=== PATIENT | female | born 1965 | race American Indian/Alaskan Native ===

== ENCOUNTER 2016-06-21 14:49 | Emergency (ER) | payer OTHER ==
[2016-06-21] MEDS ORDERED: Ondansetron INJ* 2 MG/ML VIAL IV ONE (15:22)
--- NOTE | 2016-06-21 15:24 | ED ---
Abdominal Pain/Female - HPI Summary HPI Summary: The patient is a 50 year old female presenting to ED for complaint of nausea, vomiting, diarrhea since Saturday. Recurrent vomiting with attempted PO intake. Several episodes of diarrhea. Since taking Pepto Bismal, stool has been "black like charcoal." Associated symptoms of mild epigastric pain non-radiating. Also reports chronic dry cough with occasional white sputum production. Denies fever , diaphoresis, chest pain, shortness of breath, hemoptysis, dysuria, change in voiding, hematuria, unilateral calf pain or swelling. History of CAD s/p stent x2 Jan 2016, HTN, COPD, GERD, depression. S/P cholecystectomy. On Asa and Plavix. No anticoagulation. Family history of CAD and COPD. PCP [facility]. Cardio Eliane Ellis. SH: Current smoker. No IVDU. - History of Current Complaint Chief Complaint: EDAbdPain Stated Complaint: VOMITING / BLACK STOOL Pain Intensity: 7 Allergies/Adverse Reactions: Allergies Allergy/AdvReac Type Severity Reaction Status Date / Time Latex Allergy Itching Verified 06/18/16 14:12 Tizanidine [From Zanaflex] AdvReac Nausea And Verified 06/18/16 14:12 Vomiting PMH/Surg Hx/FS Hx/Imm Hx Endocrine/Hematology History: Denies: Hx Diabetes Cardiovascular History: Reports: Hx Coronary Artery Disease, Hx Hypertension - ON MEDS, Other Cardiovascular Problems/Disorders - 2 CARDIAC STENTS Denies: Hx Congestive Heart Failure Respiratory History: Reports: Hx Chronic Obstructive Pulmonary Disease (COPD) GI History: Reports: Hx Gastroesophageal Reflux Disease - NO MEDS NEEDED NOW Denies: Other GI Disorders History: Reports: Other Problems/Disorders - STRESS INCONTINENCE Denies: Hx Dialysis, Hx Renal Disease Musculoskeletal History: Reports: Hx Arthritis - BACK, Hx Back Problems Sensory History: Denies: Hx Contacts or Glasses, Hx Hearing Aid Opthamlomology History: Denies: Hx Contacts or Glasses Neurological History: Reports: Hx Headaches, Hx Migraine - MIGRAINES R/T EPILEPSY, Hx Seizures - LAST ONE 03/23, Other Neuro Impairments/Disorders - PAIN CLINIC PATIENT, RESTLESS LEG SYNDROME, sciatica Psychiatric History: Reports: Hx Depression - Surgical History Surgery Procedure, Year, and Place: 01/2016 - heart attack w/ 2 stents. [place] [facility] [place] [facility] [place] 1988[place] . [place] [facility] [place] [facility] [place] Sp[place] stimulator. trial dorsal column stimulator [place] [facility] [place]. dorsal column stimulator placed 03/31/2015 Hx Anesthesia Reactions: No Infectious Disease History: No Infectious Disease History: Denies: Traveled Outside the [place] in Last 30 Days - Family History Known Family History: Positive: Cardiac Disease - CABG in father, Respiratory Disease - COPD - Social History Alcohol Use: None Hx Substance Use: No Substance Use Type: Reports: None Substance Use Comment - Amount & Last Used: fentanyl patch Hx Tobacco Use: Yes Smoking Status (MU): Current Every Day Smoker Type: Cigarettes Amount Used/How Often: 1/2 PPD Length of Time of Smoking/Using Tobacco: 30 YRS Have You Smoked in the Last Year: Yes Review of Systems Constitutional: Negative ENT: Negative Negative: Sore Throat, Nasal Discharge Cardiovascular: Negative Negative: Chest Pain Positive: Cough. Negative: Shortness Of Breath Positive: Abdominal Pain, Vomiting, Diarrhea, Nausea Genitourinary: Negative Negative: dysuria, flank pain, hematuria Positive: Other - chronic back pain with nerve stimulation Skin: Negative Negative: Rash Neurological: Negative All Other Systems Reviewed And Are Negative: Yes Physical Exam Triage Information Reviewed: Yes Vital Signs On Initial Exam: Initial Vitals Temp Pulse Resp BP Pulse Ox 96.7 F 80 20 123/74 98 06/21/16 14:50 06/21/16 14:50 06/21/16 14:50 06/21/16 14:50 06/21/16 14:50 Vital Signs Reviewed: Yes Appearance: Positive: Well-Appearing, No Pain Distress, Obese Skin: Positive: Warm, Skin Color Reflects Adequate Perfusion, Dry Head/Face: Positive: Normal Head/Face Inspection Eyes: Positive: Other: - Anicteric ENT: Positive: Normal ENT inspection, Hearing grossly normal, Pharynx normal, TMs normal. Negative: Pharyngeal erythema, Nasal congestion, Nasal drainage Neck: Positive: Supple, Nontender, No Lymphadenopathy Respiratory/Lung Sounds: Positive: Breath Sounds Present, Wheezes - faint expiratory wheezing. Negative: Decreased Breath Sounds, Rales, Rhonchi, Unable to speak in full sentences, Fatigue Cardiovascular: Positive: Normal, RRR, Pulses are Symmetrical in both Upper and Lower Extremities, S1, S2. Negative: Murmur, Rub, Tachycardia Abdomen Description: Positive: No Organomegaly, Soft, Other: - minimal epigastric tenderness; rectal exam with external skin tags and palpable hemorrhoids without thrombosis, no gross blood. Negative: CVA Tenderness (R), CVA Tenderness (L), Distended, Guarding, Hernia @, Hepatomegaly, McBurney's Point Tenderness, Peritoneal Signs, Pulsatile Mass, Splenomegaly Bowel Sounds: Positive: Present Musculoskeletal: Positive: Normal - AROM all extremities Neurological: Positive: Normal - awake, alert, following commands, Facial Symmetry, Speech Normal Psychiatric: Positive: Normal AVPU Assessment: Alert Diagnostics - Vital Signs Vital Signs Temp Pulse Resp BP Pulse Ox 06/21/16 14:50 96.7 F 80 20 123/74 98 - Laboratory Result Diagrams: 06/21/16 15:47 06/21/16 15:47 Lab Statement: Any lab studies that have been ordered have been reviewed, and results considered in the medical decision making process. Abdominal Pain Fem Course/Dx - Course Course Of Treatment: Patient is a 50 female presenting for V/D and epigastric pain. CXR without acute cardiopulmonary disease. Afebrile without leukocytosis and does not appear septic. Stool occult negative. Urinalysis without acute infectious process. Will be prescribed zofran. Advised on bland diet and increasing fluid intake. Advised to follow-up with PCP in 3-5 days. - Diagnoses Provider Diagnoses: Vomiting, Diarrhea, Epigastric pain, Dehydration Discharge - Discharge Plan Condition: Stable Disposition: HOME Patient Education Materials: Dehydration (ED), Acute Nausea and Vomiting (ED), Acute Diarrhea (ED), Epigastric Pain (ED) Referrals: Maribel Ortega MD [Primary Care Provider] - 5 Days
[2016-06-21] MEDS ORDERED: NS 0.9% 1000 ML* 1,000 ML IV SCH (15:30)
--- NOTE | 2016-06-21 15:41 | RAD ---
INDICATION: Epigastric pain COMPARISON: 02/27/2016 TECHNIQUE: PA and lateral dual-energy views were obtained. FINDINGS: Bones/Soft Tissues: There are no acute bony findings. There is a dorsal column stimulator, unchanged Cardiomediastinal: The cardiomediastinal silhouette is normal. Lungs: There are no infiltrates. Pleura: There are no pleural effusions. Other: None IMPRESSION: NO ACTIVE DISEASE.
[2016-06-21 15:58] LABS: Hematocrit 43 % (35-47); Hemoglobin 14.2 g/dl (12.0-16.0); Mean Corpuscular HGB Conc 33 g/dl (31-36); Mean Corpuscular Hemoglobin 29 pg (27-31); Mean Corpuscular Volume 88 fL (80-97); Mean Platelet Volume 9 um3 (7.4-10.4); Red Blood Count 4.93 10^6/ul (4.0-5.4); Red Cell Distribution Width 13 % (10.5-15); White Blood Count 6.7 10^3/ul (3.5-10.8)
[2016-06-21] MEDS ORDERED: Al Hydrox/Mg Hydrox/Simet LIQ* 30 ML UDC PO ONE (16:02)
[2016-06-21] MEDS ORDERED: Lidocaine 2% VISCOUS* 15 ML UDC PO ONE (16:02)
[2016-06-21 16:13] LABS: Albumin 4.1 g/dL (3.2-5.2); BUN/Creatinine Ratio 20.2 (8-20); Calcium 9.2 mg/dL (8.6-10.3); EGFR African American 92.7 (>60); EGFR Non-African American 72.1 (>60); Globulin 2.6 g/dL (2-4); Magnesium 1.8 mg/dL (1.9-2.7); Potassium 3.7 mmol/L (3.5-5.0); Total Bilirubin 0.3 mg/dL (0.2-1.0); Total Protein 6.7 g/dL (6.4-8.9)
[2016-06-21 16:48] LABS: Urine Bacteria Absent (Absent); Urine Bilirubin Negative (Negative); Urine Glucose Negative (Negative); Urine Nitrite Negative (Negative)
[2016-06-21] MEDS ORDERED: Ondansetron ODT TAB* 4 MG PO ONE (17:30)
[2016-06-21 18:06] VITALS: BP 100/65
== END 2016-06-21 18:05 | disposition home or self-care (01) ==
LOC: ED 14:49
DX: R11.10 Vomiting, unspecified (principal); R19.7 Diarrhea, unspecified; R10.13 Epigastric pain; E86.0 Dehydration; Z79.82 Long term (current) use of aspirin; Z79.02 Long term (current) use of antithrombotics/antiplatelets; Z82.49 Family history of ischemic heart disease and other diseases of the circulatory system; I25.10 Atherosclerotic heart disease of native coronary artery without angina pectoris; I10 Essential (primary) hypertension; J44.9 Chronic obstructive pulmonary disease, unspecified; K21.9 Gastro-esophageal reflux disease without esophagitis; F32.9 Major depressive disorder, single episode, unspecified; I25.2 Old myocardial infarction; F17.210 Nicotine dependence, cigarettes, uncomplicated
CPT/HCPCS: 36415; 71020; 80053; 81003; 81015; 82272; 83690; 83735; 85025; 87045; 87046; 87077; 87086; 87425; 87449; 87493; 87502; 87899; 96374; 99284; A9270-GY; J2405

== ENCOUNTER 2016-07-03 04:17 | Emergency (ER) | payer OTHER ==
[2016-07-03] MEDS ORDERED: Azithromycin TAB* 250 MG PO ONE (05:00)
[2016-07-03] MEDS ORDERED: predniSONE TAB* 20 MG PO ONE (05:01)
--- NOTE | 2016-07-03 05:36 | ED ---
I, Tristan,Adrienne, scribed for Garima Munoz MD on 07/03/16 at 0448 . Influenza-Like Illness - HPI Summary HPI Summary: This 50 y/o female presents to ED for flu-like symptoms since a week ago. Pt reports productive cough with green sputum, chest pain, sore throat, and subjective fever. Pt has been taking APAP to control her symptoms. PMHx is significant for CAD s/p stent placement, unspecified spinal problem s/p stimulator placement, PNA and epilepsy. She denies any asthma or COPD. Pt reports that Symbicort is included in home medication. FHx includes cardiac dz to both parents. - History of Current Complaint Time Seen by Provider: 07/03/16 04:35 Hx Obtained From: Patient Onset/Duration: Gradual Onset, Lasting Weeks, Still Present Associated Signs & Symptoms: Fever - subjective, Cough - productive with green sputum, Sore Throat - Allergy/Home Medications Allergies/Adverse Reactions: Allergies Allergy/AdvReac Type Severity Reaction Status Date / Time Latex Allergy Itching Verified 07/03/16 05:10 Tizanidine [From Zanaflex] AdvReac Nausea And Verified 07/03/16 05:10 Vomiting PMH/Surg Hx/FS Hx/Imm Hx Endocrine/Hematology History: Denies: Hx Diabetes Cardiovascular History: Reports: Hx Coronary Artery Disease, Hx Hypertension - ON MEDS, Other Cardiovascular Problems/Disorders - 2 CARDIAC STENTS Denies: Hx Congestive Heart Failure Respiratory History: Reports: Hx Chronic Obstructive Pulmonary Disease (COPD) GI History: Reports: Hx Gastroesophageal Reflux Disease - NO MEDS NEEDED NOW Denies: Other GI Disorders History: Reports: Other Problems/Disorders - STRESS INCONTINENCE Denies: Hx Dialysis, Hx Renal Disease Musculoskeletal History: Reports: Hx Arthritis - BACK, Hx Back Problems Sensory History: Denies: Hx Contacts or Glasses, Hx Hearing Aid Opthamlomology History: Denies: Hx Contacts or Glasses Neurological History: Reports: Hx Headaches, Hx Migraine - MIGRAINES R/T EPILEPSY, Hx Seizures - LAST ONE 03/23, Other Neuro Impairments/Disorders - PAIN CLINIC PATIENT, RESTLESS LEG SYNDROME, sciatica Psychiatric History: Reports: Hx Depression - Surgical History Surgery Procedure, Year, and Place: 01/2016 - heart attack w/ 2 stents. BILAT CTR 2004 [facility] [place]. [place] 2001 [facility] [place]. section x2, . left heel tendon repair [facility]. tubal ligation 1989 [facility] [place]. Spinal stimulator. trial dorsal column stimulator October 2014 [facility] [place]. perm. dorsal column stimulator placed 03/31/2015 Hx Anesthesia Reactions: No Infectious Disease History: Denies: Traveled Outside the [place] in Last 30 Days - Family History Known Family History: Positive: Cardiac Disease - CABG in father, Respiratory Disease - COPD - Social History Alcohol Use: None Hx Substance Use: No Substance Use Type: Reports: None Substance Use Comment - Amount & Last Used: fentanyl patch Hx Tobacco Use: Yes Smoking Status (MU): Current Every Day Smoker Type: Cigarettes Amount Used/How Often: 1/2 PPD Length of Time of Smoking/Using Tobacco: 30 YRS Have You Smoked in the Last Year: Yes Review of Systems Positive: Fever - subjective fever Positive: Sore Throat Positive: Cough - productive with green sputum Positive: Abdominal Pain All Other Systems Reviewed And Are Negative: Yes Physical Exam Triage Information Reviewed: Yes Vital Signs On Initial Exam: Initial Vitals Temp Pulse Resp BP Pulse Ox 98.1 F 71 16 132/81 96 07/03/16 04:30 07/03/16 04:30 07/03/16 04:30 07/03/16 04:30 07/03/16 04:30 Vital Signs Reviewed: Yes Appearance: Positive: Well-Appearing, No Pain Distress Skin: Positive: Warm, Skin Color Reflects Adequate Perfusion, Dry Head/Face: Positive: Normal Head/Face Inspection Eyes: Positive: DIONISIO Neck: Positive: Supple, Nontender Respiratory/Lung Sounds: Positive: Clear to Auscultation, Breath Sounds Present. Negative: Rales, Wheezes Cardiovascular: Positive: RRR, Pulses are Symmetrical in both Upper and Lower Extremities. Negative: Murmur, Rub Abdomen Description: Positive: Nontender, Soft Musculoskeletal: Positive: Strength/ROM Intact Neurological: Positive: Sensory/Motor Intact, Alert, Oriented to Person Place, Time Psychiatric: Positive: Affect/Mood Appropriate AVPU Assessment: Alert Diagnostics - Vital Signs Vital Signs Temp Pulse Resp BP Pulse Ox 07/03/16 05:00 66 111/71 94 07/03/16 04:37 96 07/03/16 04:35 132/81 07/03/16 04:30 98.1 F 71 16 132/81 96 - Laboratory Lab Results: Lab Results 07/03/16 Range/Units 04:42 Group A Strep Rapid Negative (Negative) Lab Statement: Any lab studies that have been ordered have been reviewed, and results considered in the medical decision making process. - Radiology CXR Xray Interpretation: No Acute Changes Radiology Interpretation Completed By: ED Physician - See EMR - EKG 0459 Cardiac Rate: NL - 65 bpm EKG Rhythm: Sinus Rhythm ST Segment: Normal Ectopy: None - Additional Comments Diagnostic Additional Comments: Negative Rapid Strep Flu Symptom Course/Dx - Course Assessment/Plan: This 50 y/o female presents to ED with chief complaint of sore throat, productive cough with green sputum production, and subjective fever. PMHx is positive for CAD s/p stent placement and PNA. Pt denies any COPD or asthma, but does have Symbicort at home. Rapid strep is indicated negative. EKG is wnl. Benign CXR. Pt is discharged with f/u with PCP as outpatient. - Diagnoses Provider Diagnoses: Bronchitis Discharge - Discharge Plan Condition: Stable Disposition: HOME Prescriptions: Azithromycin TAB* [Zithromax TAB (Z-ADRYAN) 250 mg #6 tabs] 250 mg PO DAILY #4 tab Prednisone [Deltasone] 20 mg PO DAILY #20 tab predniSONE TAB* [Deltasone TAB*] 60 mg PO DAILY #12 tab Patient Education Materials: Azithromycin (By mouth), Prednisone (By mouth), Acute Bronchitis (ED) Referrals: Maribel Ortega MD [Primary Care Provider] - The documentation as recorded by the Tristan brice Soohyun accurately reflects the service I personally performed and the decisions made by me, Garima Munoz MD.
[2016-07-03 05:40] VITALS: BP 111/84
--- NOTE | 2016-07-03 08:18 | RAD ---
INDICATION: Cough COMPARISON: Most recent comparison chest x-ray is dated June 21, 2016 TECHNIQUE: PA and lateral views of the chest were obtained. FINDINGS: Again seen is a neural stimulator overlying the thoracic spine similar in position to the previous radiograph. The heart and mediastinum are normal in size and contour. There is mild to moderate peribronchial cuffing. The lungs are grossly clear. There is no evidence of large pleural effusion. Visualized bones are normal for the patient's age. There is no radiographic evidence of free air beneath the diaphragm IMPRESSION: PERIBRONCHIAL CUFFING, NOT SIGNIFICANTLY CHANGED THE PREVIOUS CHEST X-RAY, COULD BE SEEN IN THE SETTING OF INFLAMMATORY LUNG DISEASE.
== END 2016-07-03 05:43 | disposition home or self-care (01) ==
LOC: ED 04:17
DX: J40 Bronchitis, not specified as acute or chronic (principal); R50.9 Fever, unspecified; J02.9 Acute pharyngitis, unspecified; R05 Cough; R10.9 Unspecified abdominal pain; F17.210 Nicotine dependence, cigarettes, uncomplicated
CPT/HCPCS: 71020; 87651; 93005; 99283; A9270-GY; J7512

== ENCOUNTER 2016-07-20 13:59 | Emergency (ER) | payer OTHER ==
[2016-07-20] MEDS ORDERED: HYDROmorphone INJ* 1 MG/ML CARPUJECT SYRINGE IV ONE (16:14)
[2016-07-20] MEDS ORDERED: NS 0.9% 1000 ML* 1,000 ML IV ONE (16:14)
[2016-07-20 16:38] LABS: Hematocrit 44 % (35-47); Hemoglobin 14.3 g/dl (12.0-16.0); Mean Corpuscular HGB Conc 32 g/dl (31-36); Mean Corpuscular Hemoglobin 28 pg (27-31); Mean Corpuscular Volume 88 fL (80-97); Mean Platelet Volume 8 um3 (7.4-10.4); Red Blood Count 5.03 10^6/ul (4.0-5.4); Red Cell Distribution Width 15 % (10.5-15); White Blood Count 12.4 10^3/ul (3.5-10.8)
[2016-07-20 16:52] LABS: Albumin 4.2 g/dL (3.2-5.2); BUN/Creatinine Ratio 23.9 (8-20); Calcium 9.3 mg/dL (8.6-10.3); EGFR African American 83.4 (>60); EGFR Non-African American 64.9 (>60); Globulin 2.8 g/dL (2-4); Potassium 3.8 mmol/L (3.5-5.0); Total Bilirubin 0.4 mg/dL (0.2-1.0)
[2016-07-20 16:53] LABS: Troponin I 0.01 ng/mL (<0.04)
[2016-07-20] MEDS ORDERED: Iohexol 300* (CONTRAST) 10 ML SDV IV ONE (17:07)
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
[2016-07-20] MEDS ORDERED: oxyCODONE TAB* 5 MG TAB PO ONE (18:23)
[2016-07-20 19:08] VITALS: BP 138/81
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
== END 2016-07-20 19:10 | disposition home or self-care (01) ==
LOC: ED 13:59
DX: S20.219A Contusion of unspecified front wall of thorax, initial encounter (principal); S30.1XXA Contusion of abdominal wall, initial encounter; R07.9 Chest pain, unspecified; R10.9 Unspecified abdominal pain; M25.559 Pain in unspecified hip
CPT/HCPCS: 36415; 71260; 74177; 80053; 83605; 84484; 85025; 93005; 96374; 99284; A9270-GY; J1170; Q9967

== ENCOUNTER 2016-10-15 10:53 | Emergency (ER) | payer OTHER ==
[2016-10-15 10:58] VITALS: BP 126/80
[2016-10-15] MEDS ORDERED: HYDROcodone/ACETAMIN 5-325 MG* 1 TAB PO ONE (14:35)
--- NOTE | 2016-10-21 23:59 | ED ---
Throat Pain/Nasal Congestion - HPI Summary HPI Summary: Pt here w/ Rt upper dental pain x 2 days. Radiating into sinus on this side. Has tried oxycodone and acetaminophen w/o relief last night. She is currently on anticoagulants d/t [place] last year and has been postponing dental work as a result. Cannot take NSAID's. Denies fever, chills, trouble breathing or swallowing and no ocular pain or VERA, neck pain. Denies N/V/D. - History of Current Complaint Chief Complaint: EDDentalPain Time Seen by Provider: 10/15/16 12:01 Hx Obtained From: Patient - Allergies/Home Medications Allergies/Adverse Reactions: Allergies Allergy/AdvReac Type Severity Reaction Status Date / Time Latex Allergy Itching Verified 08/21/16 14:17 Tizanidine [From Zanaflex] AdvReac Nausea And Verified 08/21/16 14:17 Vomiting PMH/Surg Hx/FS Hx/Imm Hx Previously Healthy: Yes Endocrine/Hematology History: Reports: Hx Anticoagulant Therapy Denies: Hx Blood Disorders, Hx Diabetes, Hx Unexplained Bleeding, Autoimmune Disease Cardiovascular History: Reports: Hx Coronary Artery Disease, Hx Hypertension - ON MEDS, Other Cardiovascular Problems/Disorders - 2 CARDIAC STENTS Denies: Hx Congestive Heart Failure Respiratory History: Reports: Hx Chronic Obstructive Pulmonary Disease (COPD) GI History: Reports: Hx Gastroesophageal Reflux Disease - NO MEDS NEEDED NOW Denies: Other GI Disorders History: Reports: Other Problems/Disorders - STRESS INCONTINENCE Denies: Hx Dialysis, Hx Renal Disease Musculoskeletal History: Reports: Hx Arthritis - BACK, Hx Back Problems Sensory History: Denies: Hx Contacts or Glasses, Hx Hearing Aid Opthamlomology History: Denies: Hx Contacts or Glasses Neurological History: Reports: Hx Headaches, Hx Migraine - MIGRAINES R/T EPILEPSY, Hx Seizures - LAST ONE 03/23, Other Neuro Impairments/Disorders - PAIN CLINIC PATIENT, RESTLESS LEG SYNDROME, sciatica Psychiatric History: Reports: Hx Depression - Surgical History Surgery Procedure, Year, and Place: 01/2016 - heart attack w/ 2 stents. BILAT [place] 2004 [facility] [place] 2001 [facility] [place]. c section x2, 1988- . left heel tendon repair [facility] [place]. tubal ligation 1989 [facility] [place]. Spinal stimulator. trial dorsal column stimulator October 2014 [facility] [place]. perm. dorsal column stimulator placed 03/31/2015 Hx Anesthesia Reactions: No Infectious Disease History: No Infectious Disease History: Denies: Traveled Outside the [place] in Last 30 Days - Family History Known Family History: Positive: Cardiac Disease - CABG in father, Respiratory Disease - COPD - Social History Alcohol Use: None Hx Substance Use: No Substance Use Type: Reports: None Substance Use Comment - Amount & Last Used: fentanyl patch Hx Tobacco Use: Yes Smoking Status (MU): Current Every Day Smoker Type: Cigarettes Amount Used/How Often: 8 cigarettes/day Length of Time of Smoking/Using Tobacco: 30 YRS Have You Smoked in the Last Year: Yes Review of Systems Negative: Fever, Chills Eyes: Negative Negative: Drainage, Erythema Positive: Dental Pain - see HPI. Negative: Sore Throat, Ear Ache, Nasal Discharge Cardiovascular: Negative Negative: Chest Pain Respiratory: Negative Negative: Shortness Of Breath Gastrointestinal: Negative Negative: Abdominal Pain, Vomiting, Diarrhea, Nausea Positive: no symptoms reported Musculoskeletal: Negative Skin: Negative Negative: Headache Psychological: Normal All Other Systems Reviewed And Are Negative: Yes Physical Exam Triage Information Reviewed: Yes Vital Signs On Initial Exam: Initial Vitals Temp Pulse Resp BP Pulse Ox 96.9 F 89 20 126/80 99 10/15/16 10:57 10/15/16 10:57 10/15/16 10:57 10/15/16 10:57 10/15/16 10:57 Vital Signs Reviewed: Yes Appearance: Positive: Well-Appearing - pt is sleeping in stretcher upon presentation to room, No Pain Distress - reported however does not appear to be in pain Skin: Positive: Warm, Dry - no erythema over face Head/Face: Positive: Normal Head/Face Inspection - no facial edema Eyes: Positive: Normal, EOMI. Negative: Conjunctiva Inflammed, Discharge ENT: Positive: Normal ENT inspection, Hearing grossly normal, Pharynx normal, TMs normal. Negative: Nasal congestion, Nasal drainage, Tonsillar swelling, Tonsillar exudate, Trismus, Muffled/hoarse voice Dental: Positive: Other - poor dentition in general - gingiva w/ general erythema - no signs of pustule or drainage Neck: Positive: Supple, Nontender, No Lymphadenopathy Respiratory/Lung Sounds: Positive: Breath Sounds Present. Negative: Stridor Cardiovascular: Positive: Normal, RRR Musculoskeletal: Positive: Normal, Strength/ROM Intact Neurological: Positive: Normal, Sensory/Motor Intact, Alert, Oriented to Person Place, Time, CN Intact II-III Psychiatric: Positive: Normal Diagnostics - Vital Signs Vital Signs Temp Pulse Resp BP Pulse Ox 10/15/16 10:58 97.5 F 73 20 126/80 98 10/15/16 10:57 96.9 F 89 20 126/80 99 - Laboratory Lab Statement: Any lab studies that have been ordered have been reviewed, and results considered in the medical decision making process. EENT Course/Dx - Course Course Of Treatment: Pt presents w/ dental pain. She is sleeping upon exam and falls back to sleep w/o pain medication. She reports failing oxycodone and acetaminophen at home and cannot take NSAID's. Cannot rx tramadol d/t seizure hx. Will try norco for alternative pain medication until anbx can treat potential infection d/t tooth decay causing gingivitis. She will f/u w/ dentist and return to ED if she develops danger s/sx. - Diagnoses Provider Diagnoses: Pain, dental Discharge - Discharge Plan Condition: Stable Disposition: HOME Prescriptions: HYDROcodone/ACETAMIN 5-325 MG* [[place] 5-325 TAB*] 1 tab PO Q6H PRN #12 tab MDD 4 PRN Reason: Pain Penicillin VK TAB* [Penicillin VK 250 mg Tab*] 500 mg PO QID #40 tab Patient Education Materials: Toothache (ED) Referrals: Maribel Ortega MD [Primary Care Provider] - Additional Instructions: Oral saline rinses Heat packs Complete antibiotics Follow-up with dentist this week *If you develop fever, chills, vomiting, difficulty swallowing or breathing, return to ED
== END 2016-10-15 16:07 | disposition home or self-care (01) ==
LOC: ED 10:53
DX: K08.89 Other specified disorders of teeth and supporting structures (principal); I25.2 Old myocardial infarction; Z79.01 Long term (current) use of anticoagulants; I25.10 Atherosclerotic heart disease of native coronary artery without angina pectoris; I10 Essential (primary) hypertension; J44.9 Chronic obstructive pulmonary disease, unspecified; F17.210 Nicotine dependence, cigarettes, uncomplicated
CPT/HCPCS: 99282

== ENCOUNTER 2016-12-09 10:24 | Observation (INO) | payer OTHER ==
[2016-12-09] MEDS ORDERED: Aspirin Low Dose CHEW TAB* 81 MG PO ONE ×2 (11:04→11:11)
[2016-12-09 11:22] LABS: Hematocrit 45 % (35-47); Hemoglobin 14.7 g/dl (12.0-16.0); Mean Corpuscular HGB Conc 33 g/dl (31-36); Mean Corpuscular Hemoglobin 29 pg (27-31); Mean Corpuscular Volume 88 fL (80-97); Mean Platelet Volume 9 um3 (7.4-10.4); Red Blood Count 5.08 10^6/ul (4.0-5.4); Red Cell Distribution Width 14 % (10.5-15); White Blood Count 7.4 10^3/ul (3.5-10.8)
[2016-12-09] MEDS ORDERED: Nitroglycerin TAB 0.4 MG* 0.4 MG TAB SL ONE (11:31)
[2016-12-09 11:35] LABS: BUN/Creatinine Ratio 17.3 (8-20); Calcium 9.4 mg/dL (8.6-10.3); EGFR African American 105.2 (>60); EGFR Non-African American 81.8 (>60); Magnesium 2.1 mg/dL (1.9-2.7); Potassium 3.9 mmol/L (3.5-5.0); Total Bilirubin 0.5 mg/dL (0.2-1.0); Troponin I 0.01 ng/mL (<0.04)
[2016-12-09 11:56] LABS: TSH (Thyroid Stimulating Horm) 0.97 mcIU/mL (0.34-5.60)
[2016-12-09] MEDS ORDERED: Levalbuterol 1.25MG/0.5ML NEB INH ONE (12:01)
--- NOTE | 2016-12-09 12:41 | RAD ---
Indication: Chest pain, shortness of breath. Comparison is made with previous exam dated July 03, 2016. 2 views of the chest including dual energy PA views are reviewed. No mediastinal shift is noted. There is poor inspiratory effort noted. Bibasilar atelectasis is noted. Neurostimulator leads are in place. IMPRESSION: Poor inspiratory effort without evidence of definite pneumonia.
--- NOTE | 2016-12-09 13:06 | ED ---
HPI Chest Pain - HPI Summary HPI Summary: Pt here w/ chest pain, pressure, heaviness and felt like she couldn't breath upon waking this morning at 9:35am. Took a nitro with minimal relief of chest pressure. H/o [place] in January with stents placed by Dr. Tamayo - has been taking plavix and ASA 81mg daily since w/o missing doses. She came in today as she was concerned this could be another NJ. SOme sx are similar but doesn't have Lt arm pain this time like she had in January. Also reports URI sx x 5 days. Her other thought is that this could be a "cold" in her chest. Chronic cough but worse today. Nasal congestion, achey all over x 5 days. Denies fever but feels cold. Denies N/V/D, ab pain. H/o smoking (2PPD down to 1/2 PPD) w/ recurrent bronchitis and h/o pneumonia - she reports sx feel similar to these illnesses as well. Does not have breathing treatments at home as this is not typically an issue for her but reports she's used them in the past w/ good results. Would like to try this today. Also reports h/o dental pain in various areas of her mouth over past few months. Rt upper jaw w/ dental pain - alleviated when tooth fell out. New onset Lt lower dental pain x 1 week - progressively worse. Swollen, possibly drainage - has a "bad tooth" here as well. Hasn't been able to get work done at dentist d /t plavix and ASA for stents. GI bug around November 27 - resolved w/ no residual issues. NOTE: sleep apnea test recently - results pending - History of Current Complaint Chief Complaint: EDChestPainROMI Time Seen by Provider: 12/09/16 10:43 Hx Obtained From: Patient Pain Intensity: 5 - Additional Pertinent History Primary Care Physician: [id number] - Allergy/Home Medications Allergies/Adverse Reactions: Allergies Allergy/AdvReac Type Severity Reaction Status Date / Time Latex Allergy Itching Verified 12/09/16 10:30 PMH/Surg Hx/FS Hx/Imm Hx Previously Healthy: Yes Endocrine/Hematology History: Denies: Hx Diabetes Cardiovascular History: Reports: Hx Coronary Artery Disease, Hx Hypertension - ON MEDS, Other Cardiovascular Problems/Disorders - 2 CARDIAC STENTS Jan 2016 Denies: Hx Congestive Heart Failure Respiratory History: Reports: Hx Chronic Obstructive Pulmonary Disease (COPD) - no meds GI History: Reports: Hx Gastroesophageal Reflux Disease - NO MEDS NEEDED NOW Denies: Other GI Disorders History: Reports: Other Problems/Disorders - STRESS INCONTINENCE Denies: Hx Dialysis, Hx Renal Disease Musculoskeletal History: Reports: Hx Arthritis - BACK, Hx Back Problems Sensory History: Denies: Hx Contacts or Glasses, Hx Hearing Aid Opthamlomology History: Denies: Hx Contacts or Glasses Neurological History: Reports: Hx Headaches, Hx Migraine - MIGRAINES R/T EPILEPSY, Hx Seizures - LAST ONE 03/23, Other Neuro Impairments/Disorders - PAIN CLINIC PATIENT, RESTLESS LEG SYNDROME, sciatica Psychiatric History: Reports: Hx Depression - Surgical History Surgery Procedure, Year, and Place: 01/2016 - heart attack w/ 2 stents. [facility] 2004 [facility] [place]. [facility] [place] 2001 [facility] [place]. c section x2, 1988- . left heel tendon repair [facility] [place]. tubal ligation 1989 [facility] [place]. Spinal stimulator. trial dorsal column stimulator October 2014 [facility] [place]. perm. dorsal column stimulator placed 03/31/2015 Hx Anesthesia Reactions: No Infectious Disease History: No Infectious Disease History: Denies: Traveled Outside the [place] in Last 30 Days - Family History Known Family History: Positive: Cardiac Disease - CABG in father, Respiratory Disease - COPD - Social History Lives: With Family Alcohol Use: None Hx Substance Use: No Substance Use Type: Reports: None Substance Use Comment - Amount & Last Used: fentanyl patch Hx Tobacco Use: Yes Smoking Status (MU): Current Every Day Smoker Type: Cigarettes Amount Used/How Often: 1/2 PPD Length of Time of Smoking/Using Tobacco: 2PPD x 30 YRS Have You Smoked in the Last Year: Yes Review of Systems Positive: Chills. Negative: Fever Positive: Dental Pain, Ear Ache, Nasal Discharge. Negative: Sore Throat Positive: Chest Pain Positive: Shortness Of Breath, Cough Gastrointestinal: Negative Positive: no symptoms reported Musculoskeletal: Negative Negative: Rash Neurological: Negative Positive: Anxious All Other Systems Reviewed And Are Negative: Yes Physical Exam Triage Information Reviewed: Yes Vital Signs On Initial Exam: Initial Vitals Temp Pulse Resp BP Pulse Ox 97.3 F 85 20 136/97 95 12/09/16 10:31 12/09/16 10:31 12/09/16 10:31 12/09/16 10:31 12/09/16 10:31 Vital Signs Reviewed: Yes Appearance: Positive: Obese Skin: Positive: Warm, Dry Head/Face: Positive: Normal Head/Face Inspection - Sinuses TTP Eyes: Positive: Normal, EOMI, DIONISIO ENT: Positive: Hearing grossly normal, Pharynx normal, Nasal congestion, TMs normal. Negative: Nasal drainage, Tonsillar swelling, Tonsillar exudate, Muffled/hoarse voice Dental: Positive: Gross Decay/Caries @ Neck: Positive: Supple, No Lymphadenopathy, Tenderness @ - Pt reports TTP along Lt submandibular region Respiratory/Lung Sounds: Positive: Decreased Breath Sounds, Rhonchi, Wheezes, Other - poor inspiration until requesting deeper breathes. Negative: Rales Cardiovascular: Positive: Normal, RRR, Pulses are Symmetrical in both Upper and Lower Extremities, S1, S2. Negative: Murmur, Rub, Leg Edema Left, Leg Edema Right Abdomen Description: Positive: Nontender, No Organomegaly, Soft Bowel Sounds: Positive: Present Musculoskeletal: Positive: Normal, Strength/ROM Intact Neurological: Positive: Normal, Sensory/Motor Intact, Alert, Oriented to Person Place, Time, CN Intact II-III Psychiatric: Positive: Anxious - Meera Coma Scale Coma Scale Total: 15 Diagnostics - Vital Signs Vital Signs Temp Pulse Resp BP Pulse Ox 12/09/16 11:30 111/68 12/09/16 11:09 97 12/09/16 11:00 80 18 115/88 95 12/09/16 10:46 20 12/09/16 10:37 126/94 12/09/16 10:31 97.3 F 85 20 136/97 95 - Laboratory Lab Results: Lab Results 12/09/16 12/09/16 12/09/16 Range/Units 11:05 11:05 11:05 WBC 7.4 (3.5-10.8) 10^3/ul RBC 5.08 (4.0-5.4) 10^6/ul Hgb 14.7 (12.0-16.0) g/dl Hct 45 (35-47) % MCV 88 (80-97) fL MCH 29 (27-31) pg MCHC 33 (31-36) g/dl RDW 14 (10.5-15) % Plt Count 265 (150-450) 10^3/ul MPV 9 (7.4-10.4) um3 Neut % (Auto) 48.8 (38-83) % Lymph % (Auto) 42.2 (25-47) % Bartholomew % (Auto) 7.6 (1-9) % Eos % (Auto) 0 (0-6) % Baso % (Auto) 1.4 (0-2) % Absolute Neuts (auto) 3.6 (1.5-7.7) 10^3/ul Absolute Lymphs (auto) 3.1 (1.0-4.8) 10^3/ul Absolute Monos (auto) 0.6 (0-0.8) 10^3/ul Absolute Eos (auto) 0 (0-0.6) 10^3/ul Absolute Basos (auto) 0.1 (0-0.2) 10^3/ul Absolute Nucleated RBC 0.01 10^3/ul Nucleated RBC % 0.1 INR (Anticoag Therapy) 0.90 (0.89-1.11) APTT 32.4 (26.0-36.3) seconds D-Dimer, Quantitative < 200 (Less Than 230) ng/mL Sodium 138 (133-145) mmol/L Potassium 3.9 (3.5-5.0) mmol/L Chloride 108 (101-111) mmol/L Carbon Dioxide 22 (22-32) mmol/L Anion Gap 8 (2-11) mmol/L BUN 13 (6-24) mg/dL Creatinine 0.75 (0.51-0.95) mg/dL Est GFR ( Amer) 105.2 (>60) Est GFR (Non-Af Amer) 81.8 (>60) BUN/Creatinine Ratio 17.3 (8-20) Glucose 104 H (70-100) mg/dL Lactic Acid (0.5-2.0) mmol/L Calcium 9.4 (8.6-10.3) mg/dL Magnesium 2.1 (1.9-2.7) mg/dL Total Bilirubin 0.50 (0.2-1.0) mg/dL AST 16 (13-39) U/L ALT 25 (7-52) U/L Alkaline Phosphatase 130 H (34-104) U/L Troponin I 0.01 (<0.04) ng/mL B-Natriuretic Peptide ( - 100) pg/mL Total Protein 7.0 (6.4-8.9) g/dL Albumin 4.0 (3.2-5.2) g/dL Globulin 3.0 (2-4) g/dL Albumin/Globulin Ratio 1.3 (1-3) TSH 0.97 (0.34-5.60) mcIU/mL 12/09/16 12/09/16 Range/Units 11:05 11:05 WBC (3.5-10.8) 10^3/ul RBC (4.0-5.4) 10^6/ul Hgb (12.0-16.0) g/dl Hct (35-47) % MCV (80-97) fL MCH (27-31) pg MCHC (31-36) g/dl RDW (10.5-15) % Plt Count (150-450) 10^3/ul MPV (7.4-10.4) um3 Neut % (Auto) (38-83) % Lymph % (Auto) (25-47) % Bartholomew % (Auto) (1-9) % Eos % (Auto) (0-6) % Baso % (Auto) (0-2) % Absolute Neuts (auto) (1.5-7.7) 10^3/ul Absolute Lymphs (auto) (1.0-4.8) 10^3/ul Absolute Monos (auto) (0-0.8) 10^3/ul Absolute Eos (auto) (0-0.6) 10^3/ul Absolute Basos (auto) (0-0.2) 10^3/ul Absolute Nucleated RBC 10^3/ul Nucleated RBC % INR (Anticoag Therapy) (0.89-1.11) APTT (26.0-36.3) seconds D-Dimer, Quantitative (Less Than 230) ng/mL Sodium (133-145) mmol/L Potassium (3.5-5.0) mmol/L Chloride (101-111) mmol/L Carbon Dioxide (22-32) mmol/L Anion Gap (2-11) mmol/L BUN (6-24) mg/dL Creatinine (0.51-0.95) mg/dL Est GFR ( Amer) (>60) Est GFR (Non-Af Amer) (>60) BUN/Creatinine Ratio (8-20) Glucose (70-100) mg/dL Lactic Acid 1.4 (0.5-2.0) mmol/L Calcium (8.6-10.3) mg/dL Magnesium (1.9-2.7) mg/dL Total Bilirubin (0.2-1.0) mg/dL AST (13-39) U/L ALT (7-52) U/L Alkaline Phosphatase (34-104) U/L Troponin I (<0.04) ng/mL B-Natriuretic Peptide 9 ( - 100) pg/mL Total Protein (6.4-8.9) g/dL Albumin (3.2-5.2) g/dL Globulin (2-4) g/dL Albumin/Globulin Ratio (1-3) TSH (0.34-5.60) mcIU/mL Result Diagrams: 12/09/16 11:05 12/09/16 11:05 Lab Statement: Any lab studies that have been ordered have been reviewed, and results considered in the medical decision making process. Re-Evaluation - Re-Evaluation First Eval Change: Unchanged - no change s/p xoponex Chest Pain Course/Dx - Course Course Of Treatment: Pt here w/ Chest pain, heaviness, pressure upon waking this morning. Minimal relief w/ nitro earlier today. No change since 2nd dose of nitro, ASA and xoponex neb. H/o [place] in Jan 2016. Labs are WNL, including neg 1st trop. Will admit for observation, cardiac. Spoke w/ Anton Ordoñez MEDICINAL CHEMIST who agrees w/ plan. NOTE: pt may benefit from further breathing treatments as chest is still congested. Pulse ox WNL and pt is lying comfortably in stretcher , requesting food at time of transfer of care. May eat up until midnight. - Diagnoses Provider Diagnoses: Chest pain - Provider Notifications Discussed Care Of Patient With: Anton Ordoñez MEDICINAL CHEMIST Discharge - Discharge Plan Condition: Stable Disposition: ADMITTED TO [facility]
[2016-12-09] MEDS ORDERED: Acetaminophen TAB* 325 MG PO PRN (14:01)
[2016-12-09] MEDS ORDERED: Ondansetron INJ* 2 MG/ML VIAL IV PRN (14:01)
[2016-12-09] MEDS ORDERED: Nitroglycerin TAB 0.4 MG* 0.4 MG TAB SL PRN (14:09)
[2016-12-09] MEDS ORDERED: Azithromycin TAB* 250 MG PO ONE (14:18)
[2016-12-09] MEDS ORDERED: Enoxaparin(*) 40 MG/0.4 ML SYR SUBCUT SCH (15:00)
[2016-12-09] MEDS: Albuterol/Ipratropium NEB.SOL* Albuterol 2.5 MG/Ipratropium 0.5 MG 3 ML INH PRN ×2 (15:55→22:32)
[2016-12-09] MEDS: predniSONE TAB* 20 MG PO SCH (16:23)
[2016-12-09] MEDS: Nicotine PATCH 14 MG/24 HR* PATCH TRANSDERM SCH (16:23)
[2016-12-09] MEDS ORDERED: Atorvastatin* 80 MG TAB PO SCH (17:00)
[2016-12-09] MEDS: oxyCODONE/Acetamin 5/325 MG* TAB PO PRN (18:05)
[2016-12-09] MEDS: Mometasone/Formoter 200/5 MDI INH SCH (19:49)
[2016-12-09] MEDS: ZONISAMIDE 100 MG PO SCH (20:16)
[2016-12-09] MEDS ORDERED: Nicotine Patch Removal NOTE FOLLOW UP SCH (21:00)
--- NOTE | 2016-12-09 22:34 | HP ---
CC: Dr. Maribel Ortega; Dr. Tamayo * ADMISSION HISTORY AND PHYSICAL: DATE OF ADMISSION: 12/09/16 PRIMARY CARE PROVIDER: Dr. Maribel Ortega. PRIMARY CROCODILE FARMER: Dr. Tamayo. ADMITTING PROVIDER: THELMA Mckeon. SUPERVISING PHYSICIAN: Dr. Ciro Loyola* (DICTATED BY THELMA MCKEON) CHIEF COMPLAINT: Chest pain. HISTORY OF PRESENT ILLNESS: This is a 51-year-old female with history of COPD, seizure disorder, hypertension, hyperlipidemia, chronic back pain, and known coronary artery disease, status post acute RI in January of 2016, at which point 2 cardiac stents were placed. The patient states that she has been doing well and participating in cardiac rehab and has not had any additional episodes of chest pain. She has been sick with a cough for about the last week or so. She assumed it was a viral and/or allergies. She has been taking some over-the- counter decongestions that she noted to be heart-safe and her symptoms seemed to be getting progressively worse and then she awoke this morning with significant chest pain and unable to breathe. She states that her chest pain is generally associated with deep inspiration. She denies any nausea or vomiting. No diaphoresis. She is chest pain free at the time of interview. As noted above, the patient underwent cardiac catheterization in January of 2016 approximately 10 months ago. At that point, 2 stents were placed, but there was noted to be distal disease that was non-intervenable at that time. PAST MEDICAL HISTORY: 1. Coronary artery disease, status post acute RI and stent, January of 2016 - performed by Dr. Tamayo with stents placed in the right coronary and another in the second obtuse marginal of the circumflex. She remains on dual- antiplatelet therapy. 2. Hypertension. 3. Hyperlipidemia. 4. Chronic back pain. 5. COPD. 6. Seizure disorder. PAST SURGICAL HISTORY: 1. Spinal cord stimulator placement. 2. Cholecystectomy. 3. C-sections x2. 4. Coronary catheterization. HOME MEDICATIONS: 1. Albuterol inhaler 2 puffs inhaled twice daily as needed for shortness of breath. 2. Aspirin 81 mg p.o. daily. 3. Atenolol 25 mg p.o. daily. 4. Symbicort 2 puffs inhaled twice daily. 5. Plavix 75 mg p.o. daily. 6. Isosorbide 30 mg p.o. daily. 7. Lisinopril 10 mg p.o. daily. 8. Nitroglycerin 0.4 mg sublingual q. 5 minutes as needed for chest pain. 9. Sertraline 50 mg p.o. daily. 10. Zonisamide 100 mg p.o. twice daily. 11. Percocet 5/325 mg 1 tablet p.o. q. 6 hours as needed for chest pain. SOCIAL HISTORY: The patient is disabled secondary to her back pain and lives at home with her . She smokes a half a pack of cigarettes daily with a greater than [id number] smoking history. Denies any regular alcohol consumption. REVIEW OF SYSTEMS: As noted above in HPI. All other systems have been reviewed and are otherwise negative. PHYSICAL EXAMINATION GENERAL: This is a very pleasant 51-year-old female in no acute distress. INITIAL VITALS: Temperature 97.3 degrees Fahrenheit, pulse 85 beats per minute , respiratory rate 20 per minute, oxygen saturation 95%, blood pressure 136/97 mmHg. HEENT: Head is normocephalic, atraumatic. The patient has multiple dental caries. Mucous membranes are pink and moist. RESPIRATORY: Lungs have equal breath sounds, but she does have diffuse wheezing and rhonchi noted throughout. CARDIOVASCULAR: Heart has a regular rate and rhythm without murmurs, rubs, or gallops. ABDOMEN: Soft and nontender to palpation. EXTREMITIES: No edema appreciated. Distal pulses are intact. SKIN: Limited exam shows no concerning rashes or lesions. PSYCH: The patient is alert and appropriately oriented. Affect is appropriate. LABORATORY EVALUATION: CBC shows a white blood cell count of 7400; hemoglobin of 14.7; and platelet count 265,000. D-dimer is negative. Comprehensive metabolic panel is unremarkable. Sodium 138 mmol/L, potassium 3.9 , BUN 13, creatinine 0.75. Lactic acid 1.4. Transaminases and total bilirubin within normal limits. Troponin negative at 0.01. IMAGING: Chest x-ray shows sinus rhythm with Q waves in II, III and aVF, which is unchanged from prior. Chest x-ray shows no acute process, but this is a rather poor quality film. ASSESSMENT AND PLAN: This is a pleasant 51-year-old female with history of known coronary artery disease, status post stenting January of 2016 as well as chronic obstructive pulmonary disease, seizure disorder, hypertension, hyperlipidemia, and chronic back pain, who presents to the emergency department with complaints of cough, shortness of breath, and chest pain. 1. Chest pain - this appears to be respiratory in origin secondary to chronic obstructive pulmonary disease exacerbation. Due to her history of stenting within the last 12 months, the patient will be admitted for serial troponin monitoring, but do not feel that repeat stress testing would be of value at this time. We will also plan to repeat an EKG in the morning and maintain continuous telemetry monitoring. 2. Chronic obstructive pulmonary disease exacerbation - the patient has wheezing and rhonchi noted throughout lung croft. We will treat for a mild chronic obstructive pulmonary disease exacerbation. She is not hypoxic or terribly symptomatic at this time. We will use p.r.n. DuoNebs, azithromycin, and oral prednisone. 3. Seizure disorder - stable. We will plan to continue home zonisamide dosing. 4. Hypertension. 5. Hyperlipidemia. 6. Chronic back pain. 7. Code status. The patient is a full code. 8. Healthcare proxy is the patient's . 9. DVT prophylaxis. The patient will be started on subcu Lovenox at 40 mg daily. DISPOSITION: The patient is being admitted to observation status with anticipated discharge tomorrow morning. THELMA MCKEON [id number]/[facility] #: [id number] SELENE
[2016-12-10] MEDS: oxyCODONE/Acetamin 5/325 MG* TAB PO PRN ×2 (00:11→08:32)
[2016-12-10] MEDS: Albuterol/Ipratropium NEB.SOL* Albuterol 2.5 MG/Ipratropium 0.5 MG 3 ML INH PRN ×2 (02:39→07:49)
[2016-12-10] MEDS: Mometasone/Formoter 200/5 MDI INH SCH (07:52)
[2016-12-10 08:15] VITALS: BP 128/70
[2016-12-10] MEDS: predniSONE TAB* 20 MG PO SCH (08:34)
[2016-12-10] MEDS ORDERED: Sertraline* 50 MG TAB PO SCH (09:00)
[2016-12-10] MEDS ORDERED: Azithromycin TAB* 250 MG PO SCH (09:00)
[2016-12-10] MEDS ORDERED: Atenolol TAB* 25 MG PO SCH (09:00)
[2016-12-10] MEDS ORDERED: Clopidogrel TAB* 75 MG PO SCH (09:00)
[2016-12-10] MEDS ORDERED: Isosorbide Mononitrate ER TAB* 30 MG PO SCH (09:00)
[2016-12-10] MEDS ORDERED: Lisinopril TAB* 10 MG PO SCH (09:00)
[2016-12-10] MEDS ORDERED: Aspirin Low Dose CHEW TAB* 81 MG PO SCH (09:00)
[2016-12-10] MEDS: Nicotine PATCH 14 MG/24 HR* PATCH TRANSDERM SCH (10:00)
[2016-12-10] MEDS: ZONISAMIDE 100 MG PO SCH (10:04)
--- NOTE | 2016-12-10 11:16 | DS ---
CC: Dr. Maribel Ortega* DISCHARGE SUMMARY: DATE OF ADMISSION: 12/09/16 DATE OF DISCHARGE: 12/10/16 PRIMARY CARE PROVIDER: Dr. Maribel Ortega. DISCHARGING PROVIDER: THELMA Mckeon. SUPERVISING PHYSICIAN: Dr. Pat Esquivel* (dictated by THELMA Mckeon). PRIMARY DISCHARGE DIAGNOSES: 1. Chest pain - likely secondary to acute bronchitis. 2. Chronic obstructive pulmonary disease exacerbation. SECONDARY DISCHARGE DIAGNOSES: 1. Coronary artery disease, status post PCI January of 2016. Still on dual antiplatelet therapy. 2. Seizure disorder which is stable. 3. Hypertension. 4. Hyperlipidemia. 5. Chronic back pain with spinal stimulator in place. DISCHARGE MEDICATIONS: 1. Albuterol inhaler 2 puffs inhaled twice daily as needed for shortness of breath. 2. DuoNeb 1 neb inhaled q.4 hours as needed for shortness of breath. 3. Aspirin 81 mg p.o. daily. 4. Atenolol 25 mg p.o. daily. 5. Atorvastatin 80 mg p.o. daily. 6. Azithromycin 250 mg p.o. daily x4 days. 7. Symbicort 160/4.5 two puffs inhaled twice daily. 8. Plavix 75 mg p.o. daily. 9. Isosorbide mononitrate 30 mg p.o. daily. 10. Lisinopril 10 mg p.o. daily. 11. Nitroglycerin 0.4 mg sublingual q.5 minutes as needed for chest pain. 12. Sertraline 50 mg p.o. daily. 13. Zonisamide 100 mg p.o. twice daily. 14. Oxycodone/acetaminophen 5/325 one tablet p.o. q.6 hours as needed for pain. 15. Prednisone 40 mg p.o. daily x4 days. MEDICATION CHANGES: 1. Azithromycin x4 days. 2. Prednisone x4 days. 3. P.r.n. DuoNeb. HOSPITAL IMAGIN. Chest x-ray shows no acute process. 2. EKG shows sinus rhythm without ischemic changes on 2 occasions. 3. Continuous telemetry monitoring shows no dysrhythmias. HOSPITAL COURSE: This is a pleasant 51-year-old female with COPD as well as coronary artery disease, status post acute SD with PCI resulting in 2 stents in January of 2016 as well as hypertension, hyperlipidemia, seizure disorder which is well controlled who presented to the emergency department with concerns for chest pain. The patient states that she had been having increasing cough and shortness of breath over the last week or so. She awoke yesterday morning with difficulty breathing and chest pain, which prompted her to seek care in the emergency department. The patient describes the pain as worse with deep inspiration and cough. Initial vitals were unremarkable upon reaching the emergency department as of her labs including a negative d-dimer. Initial troponin was negative. Because of her history of relatively recent PCI, hospitalist group was asked to evaluate for admission. The patient was placed on observation status with continuous telemetry monitoring and serial troponins. Initial exam appeared to be consistent with an acute bronchitis resulting in exacerbation of her COPD. She had significant wheezing and rhonchi in all lung croft and an occasional cough. The patient was treated with prednisone, azithromycin, and regular DuoNeb with good effect. Her lung exam was essentially normal at the time of discharge and her dyspnea improved as that her chest pain after receiving the nebulizer treatment. DISPOSITION AND FOLLOWUP PLAN: The patient is being discharged to home. Recommend medication changes as outlined above and follow up with her primary care provider within a week following this hospitalization. Did not recommend any further cardiac imaging at this time as her initial chest pain complaint appears to be respiratory in origin. THELMA MCKEON [id number]/[facility] #: [id number] SELENE
== END 2016-12-10 10:58 | disposition home or self-care (01) ==
LOC: ED 10:24 → MEDTELE 13:25
PROVIDERS: ADMIT Internal Medicine; ATTEND Internal Medicine
DX: R07.9 Chest pain, unspecified (principal); J44.1 Chronic obstructive pulmonary disease with (acute) exacerbation; I25.10 Atherosclerotic heart disease of native coronary artery without angina pectoris; I10 Essential (primary) hypertension; G40.909 Epilepsy, unspecified, not intractable, without status epilepticus; E78.5 Hyperlipidemia, unspecified; Z79.899 Other long term (current) drug therapy; I25.2 Old myocardial infarction; Z79.01 Long term (current) use of anticoagulants
CPT/HCPCS: 36415; 71020; 80053; 83605; 83735; 83880; 84443; 84484; 85025; 85379; 85610; 85730; 87070; 87077; 87205; 93005; 94640; 94760; 96372; 99283; A9270-GY; G0378; J1650; J7512

== ENCOUNTER 2016-12-16 12:17 | Emergency (ER) | payer OTHER ==
[2016-12-16] MEDS ORDERED: Clindamycin 600 MG IVPREMIX(* 600 MG/50 ML SDV IV ONE (15:26)
--- NOTE | 2016-12-16 16:33 | ED ---
Throat Pain/Nasal Congestion - HPI Summary HPI Summary: 51F presents with left side facial swelling starting this morning. She states that she woke up and under her eyes were swollen. She states she has been having dental pain in her left upper jaw and has gotten worst in past day. She states she can not have dental work done as she had a heart attack with stent placement a year ago and they want to wait till exactly a year to allow her to have dental work. She denies any fever, SOB, chest pain, or pain with eye movement. She states she was on amoxicillin and prednisone for bronchitis taking the last dose two days ago. - History of Current Complaint Chief Complaint: EDGeneral Time Seen by Provider: 12/16/16 15:11 - Allergies/Home Medications Allergies/Adverse Reactions: Allergies Allergy/AdvReac Type Severity Reaction Status Date / Time Latex Allergy Itching Verified 12/09/16 10:30 PMH/Surg Hx/FS Hx/Imm Hx Endocrine/Hematology History: Denies: Hx Diabetes Cardiovascular History: Reports: Hx Coronary Artery Disease, Hx Hypercholesterolemia, Hx Hypertension - ON MEDS, Other Cardiovascular Problems/ Disorders - 2 CARDIAC STENTS Jan 2016 Denies: Hx Congestive Heart Failure Respiratory History: Reports: Hx Chronic Bronchitis, Hx Chronic Obstructive Pulmonary Disease (COPD) - no meds, Hx Pneumonia GI History: Reports: Hx Gastroesophageal Reflux Disease - NO MEDS NEEDED NOW, Hx Irritable Bowel Denies: Other GI Disorders History: Reports: Other Problems/Disorders - STRESS INCONTINENCE Denies: Hx Dialysis, Hx Renal Disease Musculoskeletal History: Reports: Hx Arthritis - BACK, LEFT SHOULDER, Hx Back Problems Sensory History: Denies: Hx Contacts or Glasses, Hx Hearing Aid Opthamlomology History: Denies: Hx Contacts or Glasses Neurological History: Reports: Hx Headaches, Hx Migraine - MIGRAINES R/T EPILEPSY, Hx Seizures - LAST ONE 03/23, Other Neuro Impairments/Disorders - PAIN CLINIC PATIENT, RESTLESS LEG SYNDROME, sciatica Psychiatric History: Reports: Hx Anxiety, Hx Depression - Surgical History Surgery Procedure, Year, and Place: 01/2016 - heart attack w/ 2 stents. BILAT CTR 2004 [facility] [place]. LAP LESLYE 2001 [facility] [place]. c section x2, 1988- . left heel tendon repair [facility] [place]. tubal ligation 1989 [facility] [place]. Spinal stimulator. trial dorsal column stimulator October 2014 [facility] [place]. perm. dorsal column stimulator placed 03/31/2015 Hx Anesthesia Reactions: No Infectious Disease History: No Infectious Disease History: Denies: Traveled Outside the [place] in Last 30 Days - Family History Known Family History: Positive: Cardiac Disease - CABG in father, Respiratory Disease - COPD - Social History Alcohol Use: None Hx Substance Use: No Substance Use Type: Reports: None Substance Use Comment - Amount & Last Used: fentanyl patch Hx Tobacco Use: Yes Smoking Status (MU): Light Every Day Tobacco Smoker Type: Cigarettes Amount Used/How Often: 1/2 PPD Length of Time of Smoking/Using Tobacco: 2PPD x 30 YRS Have You Smoked in the Last Year: Yes Review of Systems Negative: Fever Positive: Dental Pain Negative: Chest Pain Negative: Shortness Of Breath Positive: Other - swelling around eye left All Other Systems Reviewed And Are Negative: Yes Physical Exam Triage Information Reviewed: Yes Vital Signs On Initial Exam: Initial Vitals Temp Pulse Resp BP Pulse Ox 98.8 F 86 16 122/85 96 12/16/16 12:19 12/16/16 12:19 12/16/16 12:19 12/16/16 12:19 12/16/16 12:19 Vital Signs Reviewed: Yes Appearance: Positive: Well-Appearing Skin: Positive: Warm, Dry Head/Face: Positive: Other - swelling noted around left eye Eyes: Positive: EOMI, DIONISIO, Conjunctiva Clear ENT: Positive: Normal ENT inspection, Pharynx normal, TMs normal Dental: Positive: Percussion Tenderness @ - 11, Gross Decay/Caries @ - 11 Respiratory/Lung Sounds: Positive: Clear to Auscultation, Breath Sounds Present Cardiovascular: Positive: Normal, RRR Diagnostics - Vital Signs Vital Signs Temp Pulse Resp BP Pulse Ox 12/16/16 14:34 97.6 F 92 16 114/71 96 12/16/16 12:19 98.8 F 86 16 122/85 96 - Laboratory Result Diagrams: 12/16/16 16:54 12/16/16 16:54 Lab Statement: Any lab studies that have been ordered have been reviewed, and results considered in the medical decision making process. - CT maxillaryfacial CT Interpretation: Positive (See Comments) - IMPRESSION: 1. SOFT TISSUE SWELLING PRESENT ANTERIOR TO THE MAXILLA AND LEFT ORBIT SUGGESTIVE OF CELLULITIS. NO SOFT TISSUE ABSCESS IS SEEN. 2. DIFFUSE CARIOUS LESIONS AND PERIAPICAL DISEASE RECOMMEND DENTAL CONSULTATION. CT Interpretation Completed By: Radiologist EENT Course/Dx - Course Course Of Treatment: 51F presents with left side facial swelling starting this morning. She states that she woke up and under her eyes were swollen. She states she has been having dental pain in her left upper jaw and has gotten worst in past day. She states she can not have dental work done as she had a heart attack with stent placement a year ago and they want to wait till exactly a year to allow her to have dental work. She denies any fever, SOB, chest pain , or pain with eye movement. on exam preseptal cellulitis seen, multiple dental abscess noted, no drainable abscess seen. labs 13. maxillaryfacial shows cellulitis. placed on clindamycin. told to follow up with dentist. patient understands and agrees with plan. - Differential Diagnoses Differential Diagnoses: Dental Abscess, Dental Caries, Periorbital/Orbital Cellulitis - Diagnoses Provider Diagnoses: Preseptal cellulitis of left eye, Dental infection Discharge - Discharge Plan Condition: Good Disposition: HOME Prescriptions: Clindamycin CAP* [Cleocin 150 MG CAP*] 450 mg PO TID #87 cap Patient Education Materials: Periorbital Cellulitis in Adults (ED) Referrals: Maribel Ortega MD [Primary Care Provider] - Additional Instructions: Take antibiotics: 3 tablets three times a day for 10 days Use Tylenol every 6 hours Avoid hard, crunchy food until seen by dentist Return to ED if develop fever, pain with eye movement or any new or worsening symptoms Images - Images Dental: 1 - pain
[2016-12-16 17:06] LABS: Hematocrit 42 % (35-47); Hemoglobin 13.8 g/dl (12.0-16.0); Mean Corpuscular HGB Conc 33 g/dl (31-36); Mean Corpuscular Hemoglobin 29 pg (27-31); Mean Corpuscular Volume 89 fL (80-97); Mean Platelet Volume 8 um3 (7.4-10.4); Red Blood Count 4.73 10^6/ul (4.0-5.4); Red Cell Distribution Width 14 % (10.5-15); White Blood Count 13.3 10^3/ul (3.5-10.8)
[2016-12-16 17:07] LABS: Comments Flag Yes
[2016-12-16 17:08] LABS: Add Diff/Slide Review? Slide Review Added
[2016-12-16 17:21] LABS: Albumin 3.6 g/dL (3.2-5.2); BUN/Creatinine Ratio 15.4 (8-20); Calcium 8.6 mg/dL (8.6-10.3); EGFR African American 84.2 (>60); EGFR Non-African American 65.4 (>60); Globulin 2.5 g/dL (2-4); Potassium 3.6 mmol/L (3.5-5.0); Total Bilirubin 0.4 mg/dL (0.2-1.0); Total Protein 6.1 g/dL (6.4-8.9)
[2016-12-16] MEDS ORDERED: Iohexol 300* (CONTRAST) 10 ML SDV IV ONE (17:23)
--- NOTE | 2016-12-16 17:58 | RAD ---
INDICATION: Left eye swelling and dental pain. COMPARISON: There are no prior studies available for comparison. TECHNIQUE: Contiguous axial sections of the axial images of the facial bones were obtained and reconstructed in the coronal and sagittal planes. The exam was performed following intravenous injection of 75 mL of Omnipaque nonionic contrast. FINDINGS: Soft tissue swelling is noted anterior to the left orbit and maxilla. No retrobulbar soft tissue swelling is noted. No soft tissue abscess is seen. There are diffuse carious lesions present within the teeth. There is also periapical disease adjacent to several of the incisor and canine teeth in the maxilla. There is mild mucosal thickening present within the ethmoid air cells and left maxillary sinus. The paranasal sinuses otherwise appear clear. The ostiomeatal complexes appear patent on both sides. There is mild deviation of the nasal septum toward the left side. IMPRESSION: 1. SOFT TISSUE SWELLING PRESENT ANTERIOR TO THE MAXILLA AND LEFT ORBIT SUGGESTIVE OF CELLULITIS. NO SOFT TISSUE ABSCESS IS SEEN. 2. DIFFUSE CARIOUS LESIONS AND PERIAPICAL DISEASE RECOMMEND DENTAL CONSULTATION.
[2016-12-16 19:11] VITALS: BP 141/91
== END 2016-12-16 19:10 | disposition home or self-care (01) ==
LOC: ED 12:17
DX: H00.036 Abscess of eyelid left eye, unspecified eyelid (principal); B99.9 Unspecified infectious disease; K08.89 Other specified disorders of teeth and supporting structures; F17.210 Nicotine dependence, cigarettes, uncomplicated
CPT/HCPCS: 36415; 70487; 80053; 83605; 85025; 85060; 86141; 96374; 99282; Q9967

== ENCOUNTER 2017-10-04 22:10 | Emergency (ER) | payer OTHER ==
[2017-10-04] MEDS ORDERED: NS 0.9% 1000 ML* 1,000 ML IV ONE (23:33)
[2017-10-04] MEDS ORDERED: Metoclopramide IV* 5 MG/ML 2 ML VIAL IV ONE (23:34)
[2017-10-04] MEDS ORDERED: Morphine VIAL* 4 MG/ML VIAL (1 ml vial) IV ONE (23:35)
[2017-10-05 00:06] LABS: ABS Basophils 0.1 10^3/ul (0-0.2); ABS Eosinophils 0 10^3/ul (0-0.6); ABS Monocytes 0.7 10^3/ul (0-0.8); ABS Neutrophils 4.6 10^3/ul (1.5-7.7); ABS Nucleated RBC 0 10^3/ul; Eosinophil % 0 % (0-6); Hematocrit 42 % (35-47); Hemoglobin 13.8 g/dl (12.0-16.0); Lymphocyte % 35.9 % (25-47); Mean Corpuscular HGB Conc 33 g/dl (31-36); Mean Corpuscular Hemoglobin 29 pg (27-31); Mean Corpuscular Volume 88 fL (80-97); Mean Platelet Volume 8.6 um3 (7.4-10.4); Nucleated Red Blood Cells % 0; Platelet Count 210 10^3/ul (150-450); Red Cell Distribution Width 14 % (10.5-15); White Blood Count 8.3 10^3/ul (3.5-10.8)
[2017-10-05 00:25] LABS: EGFR Non-African American 79.3 (>60)
[2017-10-05 01:01] LABS: Urine Appearance Clear; Urine Blood Negative (Negative); Urine Color Yellow; Urine Ketones Negative (Negative); Urine Protein Negative (Negative); Urine Specific Gravity 1.028 (1.010-1.030); Urine Urobilinogen Negative (Negative)
[2017-10-05] MEDS ORDERED: Iohexol 300* (CONTRAST) 10 ML SDV IV ONE (01:48)
--- NOTE | 2017-10-05 03:34 | HP ---
H&P (Free Text) History and Physical: PCP: Date/Time: CC: HPI: PMedHx PSurgHx SocHx: FamHx: ROS: as above, otherwise reviewed and all were negative vitals: Constitutional: NAD, normally developed, well-nourished HEENM: atraumatic; sclera/conjunctiva: ; hearing: ; oropharynx: Neck: soft tissue: ; thyroid: Pulmonary: clear to auscultation bilaterally, good aeration, no accessory muscle use CV: RR/RR, normal S1S2, no carotid bruit, no jugular venous distention, 2+ B DP/ PT, no edema Abdominal: soft, non-distended, non-tender, no rebound/guarding/rigidity, normoactive bowel sounds, no hepatosplenomegaly or masses, no costovertebral angle tenderness Musculoskeletal: general: ; gait: Integumental: Psychiatric orientation: affect: mood: eye contact: content: memory: responses: insight: Testing: ECG, personally reviewed: CXR, personally reviewed: Impression: DIAGNOSIS & PLAN Primary Secondary Admission Rational: DVTp: Code Status: HCP:
[2017-10-05] MEDS ORDERED: Magnesium CITRATE* 300 ML BTL PO ONE (03:44)
[2017-10-05 04:32] VITALS: BP 137/87
--- NOTE | 2017-10-05 04:38 | ED ---
Moy Baxter Jennifer, scribed for Anu Perez MD on 10/04/17 at 2324 . Abdominal Pain/Female - HPI Summary HPI Summary: The patient is a 51 year old female who presents with RUQ abdominal pain since 20:00. The patient states she went to bed at 18:30 and woke up at 20:00 with pressure in her abdomen. She took two percocets but states it did not alleviate her 9/10 pain. The patient denies fall, chest pain, cough. Her last bowel movement was today. She has had a cholecystectomy. She reports a lump on the right side of the abdomen that is painful to the touch - History of Current Complaint Chief Complaint: EDAbdPain Stated Complaint: ABD PAIN Time Seen by Provider: 10/04/17 22:17 Hx Obtained From: Patient Onset/Duration: Sudden Onset, Still Present Timing: Constant Severity Initially: Moderate Severity Currently: Moderate Pain Intensity: 9 Pain Scale Used: 0-10 Numeric Location: Discrete At: RUQ Radiates: No Character: Other: - Pressure Aggravating Factor(s): Nothing Alleviating Factor(s): Nothing Associated Signs and Symptoms: Positive: Other: - RUQ abdominal pain, difficulty breathing. NEGATIVE: cough, chest pain Allergies/Adverse Reactions: Allergies Allergy/AdvReac Type Severity Reaction Status Date / Time latex Allergy Itching Verified 10/04/17 22:15 PMH/Surg Hx/FS Hx/Imm Hx Endocrine/Hematology History: Denies: Hx Diabetes Cardiovascular History: Reports: Hx Coronary Artery Disease, Hx Hypercholesterolemia, Hx Hypertension - ON MEDS, Other Cardiovascular Problems/ Disorders - 2 CARDIAC STENTS Jan 2016 Denies: Hx Congestive Heart Failure Respiratory History: Reports: Hx Chronic Bronchitis, Hx Chronic Obstructive Pulmonary Disease (COPD) - no meds, Hx Pneumonia GI History: Reports: Hx Gastroesophageal Reflux Disease - NO MEDS NEEDED NOW, Hx Irritable Bowel Denies: Other GI Disorders History: Reports: Other Problems/Disorders - STRESS INCONTINENCE Denies: Hx Dialysis, Hx Renal Disease Musculoskeletal History: Reports: Hx Arthritis - BACK, LEFT SHOULDER, Hx Back Problems Sensory History: Denies: Hx Contacts or Glasses, Hx Hearing Aid Opthamlomology History: Denies: Hx Contacts or Glasses Neurological History: Reports: Hx Headaches, Hx Migraine - MIGRAINES R/T EPILEPSY, Hx Seizures - LAST ONE 03/23, Other Neuro Impairments/Disorders - PAIN CLINIC PATIENT, RESTLESS LEG SYNDROME, sciatica Psychiatric History: Reports: Hx Anxiety, Hx Depression - Surgical History Surgery Procedure, Year, and Place: 01/2016 - heart attack w/ 2 stents. BILAT CTR 2004 [facility] [place]. LAP L[place] 2001 [facility] [place]. c section x2, 1988- . left heel tendon repair [facility] [place]. tubal ligation 1989 [facility] [place]. Spinal stimulator. trial dorsal column stimulator October 2014 [facility] [place]. perm. dorsal column stimulator placed 03/31/2015 Hx Anesthesia Reactions: No Infectious Disease History: No Infectious Disease History: Denies: Traveled Outside the US in Last 30 Days - Family History Known Family History: Positive: Cardiac Disease - CABG in father, Respiratory Disease - COPD - Social History Alcohol Use: None Hx Substance Use: No Substance Use Type: Reports: None Substance Use Comment - Amount & Last Used: fentanyl patch Hx Tobacco Use: Yes Smoking Status (MU): Current Some Day Smoker Type: Cigarettes Amount Used/How Often: 1/2 PPD Length of Time of Smoking/Using Tobacco: 2PPD x 30 YRS Have You Smoked in the Last Year: Yes Review of Systems Negative: Chest Pain Respiratory: Other - DIfficulty breathing Negative: Cough Positive: Abdominal Pain All Other Systems Reviewed And Are Negative: Yes Physical Exam - Summary Physical Exam Summary: GENERAL: ~Patient is a well developed and nourished F who is lying comfortable in the stretcher. ~Patient is not in any acute respiratory distress. HEAD AND FACE: Normocephalic EYES: PERRLA, EOMI x 2. EARS: Hearing grossly intact. MOUTH: Oropharynx within normal limits. NECK: Supple, trachea is midline, no adenopathy, no JVD, no carotid bruit. CHEST: Symmetric, no tenderness at palpation LUNGS: Clear to auscultation bilaterally. No wheezing or crackles. CVS: Regular rate and rhythm, S1 and S2 present, no murmurs or gallops appreciated. ABDOMEN: Soft, tenderness to palpation in the right mid abdomen. Bowel sounds are normal. No abdominal abnormal pulsations. EXTREMITIES: Full ROM in all major joints, no edema, no cyanosis or clubbing. NEURO: Alert and oriented x 3. No acute neurological deficits. Speech is normal and follows commands. SKIN: Dry and warm Triage Information Reviewed: Yes Vital Signs On Initial Exam: Initial Vitals Temp Pulse Resp BP Pulse Ox 98.5 F 74 14 173/101 95 10/04/17 22:11 10/04/17 22:11 10/04/17 22:11 10/04/17 22:11 10/04/17 22:11 Vital Signs Reviewed: Yes Diagnostics - Vital Signs Vital Signs Temp Pulse Resp BP Pulse Ox 10/04/17 22:11 98.5 F 74 14 173/101 95 - Laboratory Lab Results: Lab Results 10/04/17 10/04/17 10/05/17 Range/Units 23:58 23:58 00:52 WBC 8.3 (3.5-10.8) 10^3/ul RBC 4.70 (4.0-5.4) 10^6/ul Hgb 13.8 (12.0-16.0) g/dl Hct 42 (35-47) % MCV 88 (80-97) fL MCH 29 (27-31) pg MCHC 33 (31-36) g/dl RDW 14 (10.5-15) % Plt Count 210 (150-450) 10^3/ul MPV 8.6 (7.4-10.4) um3 Neut % (Auto) 55.4 (38-83) % Lymph % (Auto) 35.9 (25-47) % Perry % (Auto) 7.8 H (0-7) % Eos % (Auto) 0 (0-6) % Baso % (Auto) 0.9 (0-2) % Absolute Neuts (auto) 4.6 (1.5-7.7) 10^3/ul Absolute Lymphs (auto) 3.0 (1.0-4.8) 10^3/ul Absolute Monos (auto) 0.7 (0-0.8) 10^3/ul Absolute Eos (auto) 0 (0-0.6) 10^3/ul Absolute Basos (auto) 0.1 (0-0.2) 10^3/ul Absolute Nucleated RBC 0 10^3/ul Nucleated RBC % 0 Sodium 140 (139-145) mmol/L Potassium 3.8 (3.5-5.0) mmol/L Chloride 112 H (101-111) mmol/L Carbon Dioxide 22 (22-32) mmol/L Anion Gap 6 (2-11) mmol/L BUN 18 (6-24) mg/dL Creatinine 0.77 (0.51-0.95) mg/dL Est GFR ( Amer) 102.0 (>60) Est GFR (Non-Af Amer) 79.3 (>60) BUN/Creatinine Ratio 23.4 H (8-20) Glucose 107 H (70-100) mg/dL Calcium 9.2 (8.6-10.3) mg/dL Total Bilirubin 0.30 (0.2-1.0) mg/dL AST 15 (13-39) U/L ALT 20 (7-52) U/L Alkaline Phosphatase 134 H (34-104) U/L C-Reactive Protein < 1.00 (< 5.00) mg/L Total Protein 6.5 (6.4-8.9) g/dL Albumin 4.1 (3.2-5.2) g/dL Globulin 2.4 (2-4) g/dL Albumin/Globulin Ratio 1.7 (1-3) Lipase 17 (11.0-82.0) U/L Urine Color Yellow Urine Appearance Clear Urine pH 6.0 (5-9) Ur Specific [place] 1.028 (1.010-1.030) Urine Protein Negative (Negative) Urine Ketones Negative (Negative) Urine Blood Negative (Negative) Urine Nitrate Negative (Negative) Urine Bilirubin Negative (Negative) Urine Urobilinogen Negative (Negative) Ur Leukocyte Esterase Negative (Negative) Urine Glucose Negative (Negative) Result Diagrams: 10/04/17 23:58 10/04/17 23:58 Lab Statement: Any lab studies that have been ordered have been reviewed, and results considered in the medical decision making process. - CT CT Abd/Pel CT Interpretation: Positive (See Comments) - There is mild atelectasis in the lower lobes. There is no free air. Prior cholecystectomy. There is no hydronephrosis. There are no renal calculi. 7.5 cm right renal cyst noted. No AAA. There is a moderate amount of stool noted in the colon. There is no evidence of intestinal obstruction. There is an incidental small fat containing umbilical hernia. There are no incarcerated bowel loops. The appendix is normal in size. Tehre is no evidence of appendicitis. Urinary bladder is unremarkable. There are no bladder calculi. Dr. Perez has reviewed this report. CT Interpretation Completed By: Radiologist Abdominal Pain Fem Course/Dx - Course Course Of Treatment: The patient is a 51 year old female who presents with RUQ abdominal pain since 20:00. In the ED course the patient was given Reglan, Morphine, and IV fluids. Bloodwork and Urinalysis were obtained. CT Abd/Pel was obtained and showed large amount of stool and fat containing umbilical hernia. The patient is diagnosed with abdominal pain. The patient is instructed to follow up with PCP in 3 days. Return precautions given. Patient stable upon discharge - Diagnoses Provider Diagnoses: Abdominal pain Discharge - Sign-Out/Discharge Documenting (check all that apply): Discharge/Admit/Transfer - Discharge Plan Condition: Stable Disposition: HOME Patient Education Materials: Magnesium Citrate (By mouth), Umbilical Hernia (ED ), Abdominal Pain (ED) Referrals: Maribel Ortega MD [Primary Care Provider] - Additional Instructions: Follow up with your primary care physician in three days. Return to the emergency department for any new or worsening symptoms. Drink full bottle of magnesium citrate in the morning. It is often preferred over ice. This is a stimulant laxative and may cause abdominal cramping and gas , these are common side effects. - Billing Disposition and Condition Condition: STABLE Disposition: HOME The documentation as recorded by the Moy brice Jennifer accurately reflects the service I personally performed and the decisions made by , Anu Perez MD.
--- NOTE | 2017-10-05 08:38 | RAD ---
Indication: Right upper quadrant pain. Contrast: Administered 96.2 ml of Contrast -- mg/ml Lung bases demonstrate no pleural fluid, nodules or masses. Heart is of normal size without evidence of pericardial effusion. The liver is normal in size. No focal lesions or intrahepatic ductal dilatation is noted. The patient is status post cholecystectomy. The spleen is normal in size. The pancreas demonstrates no mass or pancreatic ductal dilatation. There is a left adrenal nodule measuring 16 mm. When compared to previous exam no significant change is noted. Right adrenal is unremarkable. The kidneys demonstrate symmetric nephrograms with a large right renal cyst measuring 7.5 cm. No retroperitoneal lymphadenopathy is noted. No dilated loops of bowel are noted. CT of the pelvis demonstrates no retroperitoneal or pelvic lymphadenopathy. The uterus and ovaries are unremarkable. The bladder is unremarkable. No hernias are noted. The colon is filled with stool. The appendix is visualized and appears to be within normal limits. The bony structures demonstrate neurostimulator leads in appropriate position. IMPRESSION: Large right renal cyst. Patient status post cholecystectomy. Neurostimulator leads are in place. Left adrenal nodule measuring 16 mm unchanged from September 15, 2015.
== END 2017-10-05 04:29 | disposition home or self-care (01) ==
LOC: ED 22:10
DX: R10.11 Right upper quadrant pain (principal)
CPT/HCPCS: 36415; 74177; 80053; 81003; 83690; 85025; 86140; 99284; A9270-GY; J2270; J2765; Q9967

== ENCOUNTER 2018-09-30 18:22 | Emergency (ER) | payer OTHER ==
[2018-09-30 18:33] VITALS: BP 138/87
[2018-09-30] MEDS ORDERED: DOXYcycline CAP(*) 100 MG PO ONE (18:37)
--- NOTE | 2018-09-30 18:37 | UC ---
Skin Complaint HPI - HPI Summary HPI Summary: 52 yo female presents with tick bite. She tells me that today she removed a tick from her left hip. Is unsure how long it was attached, but says it was very large. She is concerned about infection/lyme disease. - History of Current Complaint Chief Complaint: UCSkin Time Seen by Provider: 09/30/18 18:37 Stated Complaint: TICK Hx Obtained From: Patient Onset/Duration: Sudden Onset Onset Severity: Moderate Current Severity: Moderate Pain Intensity: 7 Pain Scale Used: 0-10 Numeric - Allergy/Home Medications Allergies/Adverse Reactions: Allergies Allergy/AdvReac Type Severity Reaction Status Date / Time latex Allergy Itching Verified 09/30/18 18:33 PMH/Surg Hx/FS Hx/Imm Hx - Additional Past Medical History Additional PMH: Chronic pain Cardiovascular History: Cardiac Disease, Hypertension, Myocardial Infarction Respiratory History: COPD, Asthma - Surgical History Surgical History: Yes Surgery Procedure, Year, and Place: 01/2016 - heart attack w/ 2 stents. BILAT CTR 2004 [facility] [place]. LAP L[place]E 2001 [facility] [place]. c section x2, 1988- . left heel tendon repair [facility] [place]. tubal ligation 1989 [facility] [place]. Spinal stimulator. trial dorsal column stimulator October 2014 [facility] [place]. perm. dorsal column stimulator placed 03/31/2015 - Family History Known Family History: Positive: Cardiac Disease - CABG in father, Respiratory Disease - COPD - Social History Lives: With Family Alcohol Use: None Substance Use Type: None Substance Use Comment - Amount & Last Used: fentanyl patch Smoking Status (MU): Current Every Day Smoker Type: Cigarettes Amount Used/How Often: 1/2 PPD Length of Time of Smoking/Using Tobacco: 2PPD x 30 YRS Have You Smoked in the Last Year: Yes When Did the Patient Quit Smoking/Using Tobacco: 02/05/16 Household Exposure Type: Cigarettes - Immunization History Most Recent Influenza Vaccination: Feb 2015 Most Recent Tetanus Shot: within ten years Most Recent Pneumonia Vaccination: never Review of Systems All Other Systems Reviewed And Are Negative: Yes Constitutional: Positive: Negative Skin: Positive: Other - Tick bite Respiratory: Positive: Negative Cardiovascular: Positive: Negative Neurological: Positive: Negative Psychological: Positive: Negative Physical Exam - Summary Physical Exam Summary: GENERAL: NAD. WDWN. No pain distress. SKIN: LEFT HIP: there is a 7mm diameter of mild erythema and edema with central 1mm area of superficial skin loss. No streaking, bleeding, or drainage. CHEST: No accessory muscle use. Breathing comfortably and in no distress. CV: Pulses intact. Cap refill <2seconds NEURO: Alert. PSYCH: Age appropriate behavior. Triage Information Reviewed: Yes Vital Signs: Initial Vital Signs Temp 97.3 F 09/30/18 18:30 Pulse 90 09/30/18 18:30 Resp 18 09/30/18 18:30 BP 138/87 09/30/18 18:30 Pulse Ox 99 09/30/18 18:30 Vital Signs Reviewed: Yes Course/Dx - Course Course Of Treatment: Tick bite to left hip. In the clinic pt was given 200mg doxycycline and advised to apply a band-aid to the area and f/u with PCP if she develops signs/symptoms of lyme. - Diagnoses Provider Diagnosis: Tick bite Discharge - Sign-Out/Discharge Documenting (check all that apply): Patient Departure All imaging exams completed and their final reports reviewed: No Studies - Discharge Plan Condition: Stable Disposition: HOME Patient Education Materials: Lyme Disease (ED), Tick Bite (ED) Referrals: Maribel Ortega MD [Primary Care Provider] - Additional Instructions: If you develop a fever, shortness of breath, chest pain, new or worsening symptoms - please call your PCP or go to the ED immediately. Please apply neosporin and a band-aid to the area until well healed (likely 5-7 days) TICK BITE: You have been bitten by a tick. Once the tick is removed, these "bites" usually cause no problems. Tick fever, tick paralysis, [place] Spotted fever, and Lyme disease are uncommon -- but you should mention this tick bite to your doctor if you develop unusual symptoms in the next several weeks. If you develop any of the following, please see your physician promptly: (1) Fever, chills, or generalized malaise associated with a headache. (2) A red round area at the site of the bite (or elsewhere) (3) Joint pain, joint swelling or generalized weakness. (4) Redness, swelling, or drainage at the site of the bite. - Billing Disposition and Condition Condition: STABLE Disposition: Home
== END 2018-09-30 19:00 | disposition home or self-care (01) ==
LOC: UCEAST 18:22
DX: S70.262A Insect bite (nonvenomous), left hip, initial encounter (principal); W57.XXXA Bitten or stung by nonvenomous insect and other nonvenomous arthropods, initial encounter; Y92.9 Unspecified place or not applicable; G89.29 Other chronic pain; I11.9 Hypertensive heart disease without heart failure; I25.2 Old myocardial infarction; J44.9 Chronic obstructive pulmonary disease, unspecified; Z91.040 Latex allergy status; Z87.891 Personal history of nicotine dependence
CPT/HCPCS: 99212; A9270-GY; G0463

== ENCOUNTER 2018-10-22 10:43 | Emergency (ER) | payer OTHER ==
[2018-10-22 10:58] VITALS: BP 126/86
[2018-10-22] MEDS ORDERED: Tetan/Diph/Pertus SYR(Tdap)* 0.5 ML SYR(BOOSTRIX) use SYR IM ONE (11:19)
--- NOTE | 2018-10-22 11:23 | ED ---
Skin Complaint - HPI Summary HPI Summary: Pt is a 52 y/o F presenting to the ED with a chief complaint of a tick bite onset 2 weeks ago. She states she went to urgent care and was given two doses of Doxycycline, but her sx have not gotten better. Her sx include erythema and scabbing to the affected area, pain down her L back and L leg, fatigue, nausea, and vomiting. - History of Current Complaint Chief Complaint: EDAnimalBite Time Seen by Provider: 10/22/18 11:11 Stated Complaint: TICK BITE PER PT Hx Obtained From: Patient Onset/Duration: Started Weeks Ago, Still Present Skin Exposure Onset/Duration: Weeks Ago Timing: Constant, Lasting Weeks Onset Severity: Moderate Current Severity: Severe Pain Intensity: 10 Pain Scale Used: 0-10 Numeric Skin Location: Other: - L-sided back Character: Pain, Redness Aggravating Symptom(s): Nothing Alleviating Symptom(s): Nothing Associated Signs & Symptoms: Nausea, Vomiting, Tenderness Related History: Insect Bite/Sting - tick bite - Additional Pertinent History Primary Care Physician: BAKARI - Allergy/Home Medications Allergies/Adverse Reactions: Allergies Allergy/AdvReac Type Severity Reaction Status Date / Time latex Allergy Itching Verified 10/22/18 10:05 Penicillins Allergy Unknown Verified 10/22/18 10:58 Reaction Details PMH/Surg Hx/FS Hx/Imm Hx Previously Healthy: Yes Endocrine/Hematology History: Denies: Hx Diabetes Cardiovascular History: Reports: Hx Coronary Artery Disease, Hx Hypercholesterolemia, Hx Hypertension - ON MEDS, Other Cardiovascular Problems/ Disorders - 2 CARDIAC STENTS Jan 2016 Denies: Hx Congestive Heart Failure Respiratory History: Reports: Hx Chronic Bronchitis, Hx Chronic Obstructive Pulmonary Disease (COPD), Hx Pneumonia GI History: Reports: Hx Gastroesophageal Reflux Disease - NO MEDS NEEDED NOW, Hx Irritable Bowel Denies: Other GI Disorders History: Reports: Other Problems/Disorders - STRESS INCONTINENCE Denies: Hx Dialysis, Hx Renal Disease Musculoskeletal History: Reports: Hx Arthritis - BACK, LEFT SHOULDER, Hx Back Problems Sensory History: Denies: Hx Contacts or Glasses, Hx Hearing Aid Opthamlomology History: Denies: Hx Contacts or Glasses Neurological History: Reports: Hx Headaches, Hx Migraine - MIGRAINES R/T EPILEPSY, Hx Seizures - LAST ONE 03/23, Other Neuro Impairments/Disorders - PAIN CLINIC PATIENT, RESTLESS LEG SYNDROME, sciatica Psychiatric History: Reports: Hx Anxiety, Hx Depression - Surgical History Surgery Procedure, Year, and Place: 01/2016 - heart attack w/ 2 stents. [place] [facility] [place] [facility] [place] x2, 1988- . left heel tendon [place] [facility] [place] [facility] [place] Spinal stimulator. trial dorsal column stimulator October 2014 [facility] [place] perm. dorsal column stimulator placed 03/31/2015 Hx Anesthesia Reactions: No Infectious Disease History: No Infectious Disease History: Denies: Traveled Outside the [place] in Last 30 Days - Family History Known Family History: Positive: Cardiac Disease - CABG in father, Respiratory Disease - COPD - Social History Alcohol Use: None Hx Substance Use: No Substance Use Type: Reports: None Substance Use Comment - Amount & Last Used: fentanyl patch Hx Tobacco Use: Yes Smoking Status (MU): Current Every Day Smoker Type: Cigarettes Amount Used/How Often: 1/2 PPD Length of Time of Smoking/Using Tobacco: 2PPD x 30 YRS Have You Smoked in the Last Year: Yes Review of Systems Positive: Fatigue Positive: Vomiting, Nausea Positive: Myalgia - L back and L leg Positive: Rash, Other - scabbing, erythema All Other Systems Reviewed And Are Negative: Yes Physical Exam - Summary Physical Exam Summary: Appearance: Well appearing, no pain distress Skin: warm, dry. Puncture wound with erythema on the L flank, 2x2cm. Head/face: normal Eyes: EOMI, DIONISIO ENT: normal Neck: supple, non-tender Respiratory: CTA, breath sounds present Cardiovascular: RRR, pulses symmetrical Abdomen: non-tender, soft Musculoskeletal: normal, strength/ROM intact Neuro: normal, sensory motor intact, A&Ox3 Triage Information Reviewed: Yes Vital Signs On Initial Exam: Initial Vitals Temp Pulse Resp BP Pulse Ox 97.6 F 71 16 126/86 94 10/22/18 10:53 10/22/18 10:53 10/22/18 10:53 10/22/18 10:53 10/22/18 10:53 Vital Signs Reviewed: Yes Diagnostics - Vital Signs Vital Signs Temp Pulse Resp BP Pulse Ox 10/22/18 10:53 97.6 F 71 16 126/86 94 - Laboratory Lab Statement: Any lab studies that have been ordered have been reviewed, and results considered in the medical decision making process. Course/Dx - Course Course Of Treatment: Pt is a 52 y/o F presenting to the ED with a chief complaint of a tick bite onset 2 weeks ago. Her sx include erythema and scabbing to the affected area, pain down her L back and L leg, fatigue, nausea, and vomiting. On physical exam, the pt has a puncture wound to the L flank that is erythematous and 2x2cm. Pt noted that she is not UTD on her Tetanus shot, so she will receive her Tetanus shot while she is here. The pt will be sent home with abx and a dx of tick bite. She is stable and agreeable with this plan. - Differential Diagnoses - Skin Complaint Differential Diagnoses: Cellulitis, Tick Born Illness - Diagnoses Provider Diagnoses: Tick bite, Cellulitis Discharge - Sign-Out/Discharge Documenting (check all that apply): Patient Departure Patient Received Moderate/Deep Sedation with Procedure: No - Discharge Plan Condition: Stable Disposition: HOME Prescriptions: Sulfamethox/Trimethoprim DS* [Bactrim DS 800/160 TAB*] 1 tab PO BID #14 tab Referrals: Maribel Ortega MD [Primary Care Provider] - Additional Instructions: Please follow up with your primary care provider in 2-3 days. Return to the emergency department with any new or worsening symptoms. - Billing Disposition and Condition Condition: STABLE Disposition: Home - Attestation Statements Document Initiated by Dana: Yes Documenting Scribe: Melissa Parra Provider For Whom Dana is Documenting (Include Credential): Curtis Gaviria MD. Scribe Attestation: Melissa Baxter scribed for Curtis Gaviria MD. on 10/22/18 at 1156. Scribe Documentation Reviewed: Yes Provider Attestation: The documentation as recorded by the priscilaibMelissa blunt accurately reflects the service I personally performed and the decisions made by , Curtis Gaviria MD. Status of Scribe Document: Viewed
== END 2018-10-22 11:27 | disposition home or self-care (01) ==
LOC: ED 10:43
DX: T14.8XXA Other injury of unspecified body region, initial encounter (principal); W57.XXXA Bitten or stung by nonvenomous insect and other nonvenomous arthropods, initial encounter; L03.319 Cellulitis of trunk, unspecified; I10 Essential (primary) hypertension; I25.10 Atherosclerotic heart disease of native coronary artery without angina pectoris; E78.00 Pure hypercholesterolemia, unspecified; J44.9 Chronic obstructive pulmonary disease, unspecified; K21.9 Gastro-esophageal reflux disease without esophagitis; K58.9 Irritable bowel syndrome, unspecified; F41.9 Anxiety disorder, unspecified; F32.9 Major depressive disorder, single episode, unspecified; F17.210 Nicotine dependence, cigarettes, uncomplicated; Z88.0 Allergy status to penicillin; Z91.040 Latex allergy status; Z95.5 Presence of coronary angioplasty implant and graft
CPT/HCPCS: 90471; 90715; 99282

== ENCOUNTER 2018-11-12 22:52 | Emergency (ER) | payer OTHER ==
[2018-11-12] MEDS ORDERED: Clindamycin CAP* 150 MG PO ONE (23:36)
[2018-11-12] MEDS ORDERED: Lidocaine 2% VISCOUS* 15 ML UDC PO ONE (23:37)
[2018-11-12] MEDS ORDERED: Al Hydrox/Mg Hydrox/Simet LIQ* 30 ML UDC PO ONE (23:37)
[2018-11-12] MEDS ORDERED: Famotidine TAB* 20 MG PO ONE (23:37)
--- NOTE | 2018-11-12 23:39 | ED ---
Throat Pain/Nasal Congestion - HPI Summary HPI Summary: 52-year-old female presents with dental pain and swelling for the past 3 days. She states has had increased swelling to the right lower jaw. She states the swelling has been increasing. She denies any fevers or chills. She has been taking Tylenol for the pain. the tyenlol has been causing her stomach to become upset. She denies any chest or shortness of breath. No difficulty swallowing. - History of Current Complaint Chief Complaint: EDDentalPain Time Seen by Provider: 11/12/18 23:24 - Allergies/Home Medications Allergies/Adverse Reactions: Allergies Allergy/AdvReac Type Severity Reaction Status Date / Time latex Allergy Itching Verified 10/22/18 10:05 Penicillins Allergy Unknown Verified 10/22/18 10:58 Reaction Details PMH/Surg Hx/FS Hx/Imm Hx Endocrine/Hematology History: Denies: Hx Diabetes Cardiovascular History: Reports: Hx Coronary Artery Disease, Hx Hypercholesterolemia, Hx Hypertension - ON MEDS, Other Cardiovascular Problems/ Disorders - 2 CARDIAC STENTS Jan 2016 Denies: Hx Congestive Heart Failure Respiratory History: Reports: Hx Chronic Bronchitis, Hx Chronic Obstructive Pulmonary Disease (COPD), Hx Pneumonia GI History: Reports: Hx Gastroesophageal Reflux Disease - NO MEDS NEEDED NOW, Hx Irritable Bowel Denies: Other GI Disorders History: Reports: Other Problems/Disorders - STRESS INCONTINENCE Denies: Hx Dialysis, Hx Renal Disease Musculoskeletal History: Reports: Hx Arthritis - BACK, LEFT SHOULDER, Hx Back Problems Sensory History: Denies: Hx Contacts or Glasses, Hx Hearing Aid Opthamlomology History: Denies: Hx Contacts or Glasses Neurological History: Reports: Hx Headaches, Hx Migraine - MIGRAINES R/T EPILEPSY, Hx Seizures - LAST ONE 03/23, Other Neuro Impairments/Disorders - PAIN CLINIC PATIENT, RESTLESS LEG SYNDROME, sciatica Psychiatric History: Reports: Hx Anxiety, Hx Depression - Surgical History Surgery Procedure, Year, and Place: 01/2016 - heart attack w/ 2 stents[place] [facility] [place] [facility] [place], [place] [facility] [place] [facility] [place]. trial dorsal column stimulator [place] [facility] [place] dorsal [place] stimulator placed 03/31/2015 Hx Anesthesia Reactions: No - Immunization History Immunizations Up to Date: Yes Infectious Disease History: No Infectious Disease History: Denies: Traveled Outside the [place] in Last 30 Days - Family History Known Family History: Positive: Cardiac Disease - CABG in father, Respiratory Disease - COPD - Social History Alcohol Use: None Hx Substance Use: No Substance Use Type: Reports: None Substance Use Comment - Amount & Last Used: fentanyl patch Hx Tobacco Use: Yes Smoking Status (MU): Current Every Day Smoker Type: Cigarettes Amount Used/How Often: 1/2 PPD Length of Time of Smoking/Using Tobacco: 2PPD x 30 YRS Have You Smoked in the Last Year: Yes Review of Systems Negative: Fever Positive: Dental Pain Negative: Chest Pain Negative: Shortness Of Breath All Other Systems Reviewed And Are Negative: Yes Physical Exam Triage Information Reviewed: Yes Vital Signs On Initial Exam: Initial Vitals Temp Pulse Resp BP Pulse Ox 96.7 F 97 18 138/88 94 11/12/18 22:53 11/12/18 22:53 11/12/18 22:53 11/12/18 22:53 11/12/18 22:53 Vital Signs Reviewed: Yes Appearance: Positive: Well-Appearing Skin: Positive: Warm, Dry, Other - erythema to right side of face, swelling to right side of face Head/Face: Positive: Normal Head/Face Inspection Eyes: Positive: Normal, EOMI, DIONISIO, Conjunctiva Clear ENT: Positive: Pharynx normal, TMs normal Neck: Positive: Supple, Nontender, No Lymphadenopathy Respiratory/Lung Sounds: Positive: Clear to Auscultation, Breath Sounds Present Cardiovascular: Positive: Normal, RRR Abdomen Description: Positive: Nontender, Soft Bowel Sounds: Positive: Present Musculoskeletal: Positive: Normal Neurological: Positive: Normal Psychiatric: Positive: Normal Diagnostics - Vital Signs Vital Signs Temp Pulse Resp BP Pulse Ox 11/12/18 22:53 96.7 F 97 18 138/88 94 - Laboratory Lab Statement: Any lab studies that have been ordered have been reviewed, and results considered in the medical decision making process. EENT Course/Dx - Course Course Of Treatment: 52-year-old female presents with dental pain and swelling for the past 3 days. She states has had increased swelling to the right lower jaw. She states the swelling has been increasing. She denies any fevers or chills. She has been taking Tylenol for the pain. the tyenlol has been causing her stomach to become upset. She denies any chest or shortness of breath. No difficulty swallowing. On exam has edema noted to right lower jaw. Some induration felt been no fluctuance felt in right lower jaw. Has some mild erythema to the right side of face. Will treat with clindamycin. Told follow up with dentist. Patient understands agrees plan. - Differential Diagnoses Differential Diagnoses: Dental Abscess, Dental Caries, Fractured Tooth - Diagnoses Provider Diagnoses: Dental infection Discharge - Sign-Out/Discharge Documenting (check all that apply): Patient Departure Patient Received Moderate/Deep Sedation with Procedure: No - Discharge Plan Condition: Good Disposition: HOME Prescriptions: Clindamycin Cap(NF) [Clindamycin Cap 300 mg Cap(NF)] 300 mg PO TID #21 cap Famotidine TAB* [Pepcid 20 MG TAB*] 20 mg PO DAILY #7 tab Patient Education Materials: Dental Abscess (ED) Referrals: Maribel Ortega MD [Primary Care Provider] - Additional Instructions: Take clindamycin three times a day for 7 days Take tyenlol every 6 hours for pain as needed Avoid hard, crunchy food until seen by dentist Return to ED if develop fever, shortness of breath, pain with eye movement or swelling around eye Follow up with dentist as soon as possible - Billing Disposition and Condition Condition: GOOD Disposition: Home
[2018-11-13 00:05] VITALS: BP 125/86
== END 2018-11-13 | disposition home or self-care (01) ==
LOC: ED 22:52
DX: K04.7 Periapical abscess without sinus (principal); I10 Essential (primary) hypertension; J44.9 Chronic obstructive pulmonary disease, unspecified; Z95.5 Presence of coronary angioplasty implant and graft; Z88.0 Allergy status to penicillin; Z91.040 Latex allergy status; F17.210 Nicotine dependence, cigarettes, uncomplicated
CPT/HCPCS: 99283; A9270-GY

== ENCOUNTER 2019-03-25 15:31 | Emergency (ER) | payer OTHER ==
--- OUTSIDE RECORDS SUMMARY | 2019-03-25 16:02 | XMS REPORT | Summary of Care ---
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 OXYcodone-acetaminophe Take 1-2 Tabs 0 Active n (PERCOCET) 5-325 MG by mouth TWICE Oral Tab DAILY. Pt taking one tab in AM and 2 tabs in PM aspirin (ECOTRIN) 81 Take 81 mg by 0 Active MG Oral Tab EC mouth DAILY. nitroglycerin Place 1 Tab 90 Tab 0 Active (NITROSTAT) 0.4 MG under tongue 7 Sublingual SL Tab EVERY FIVE MINUTES NEEDED for chest pain. budesonide-formoterol Take 2 INHL by 1 Inhaler 5 Active fumarate (SYMBICORT) inhalation 7 160-4.5 MCG/ACT TWICE DAILY. Inhalation Aerosol albuterol HFA Take 2 Puffs by 1 Inhaler 5 Active (VENTOLIN) 108 (90 inhalation 7 Base) MCG/ACT EVERY FOUR Inhalation Aero Soln HOURS NEEDED (short of breath). isosorbide MONOnitrate Take 1 Tab by 30 Tab 0 Active (IMDUR) 30 MG Oral mouth DAILY. 7 TABLET SR 24 HR Omeprazole delayed rel take 1 capsule 90 Cap 1 Active cap 20 MG Oral CAPSULE by mouth once 7 DELAYED daily RELEASEIndications: Chronic GERD albuterol (PROVENTIL, 3 mL by 360 mg 0 Active VENTOLIN) (2.5 MG/3ML) Inhalation-SVN 8 0.083% Inhalation Nebu route TWICE Soln DAILY. atorvastatin (LIPITOR) take 1 tablet 90 Tab 3 Active 80 MG Oral Tab by mouth once 8 daily lisinopril (PRINIVIL, Take 1 Tab by 90 Tab 3 Active ZESTRIL) 10 MG Oral mouth DAILY. 9 TabIndications: Essential hypertension atenolol (TENORMIN) 25 take 1 tablet 30 Tab 11 Active MG Oral by mouth once 9 TabIndications: daily Coronary artery disease involving levelock coronary artery of levelock heart without angina pectoris sertraline (ZOLOFT) 50 Take 1 Tab by 90 Tab 1 Active MG Oral Tab mouth DAILY. 9 Take with Zoloft 100 mg, total 150 mg daily sertraline (ZOLOFT) Take 1 Tab by 90 Tab 1 Active 100 MG Oral mouth DAILY. 9 TabIndications: Depression, unspecified depression type predniSONE (DELTASONE) Take 1 Tab by 10 Tab 0 02/18/20 Active 20 MG Oral mouth TWICE 9 19 TabIndications: DAILY for 5 Sciatica of left side days. tramadol (ULTRAM) 50 Take 1 Tab by 30 Tab 1 02/13/20 Discontinued MG Oral mouth EVERY SIX 7 19 TabIndications: HOURS NEEDED Arthralgia of left for Pain. Max acromioclavicular Daily Amount: 4 joint Tabs. documented as of this encounter (statuses as of 02/12/2019) Active Problems Problem Noted Date Non-STEMI (non-ST elevated myocardial infarction) 08/18/2018 Non-STEMI (non-ST elevated myocardial infarction) 12/08/2017 Chronic obstructive pulmonary disease with acute exacerbation 12/08/2017 Adrenal nodule 07/27/2016 Coronary artery disease involving levelock coronary artery of levelock heart 03/23 without angina pectoris Overview: S/p NSTEMI with PCI to RCA and OM at [facility] 02/09 BMI 27.0-27.9,adult 09/05/2011 Renal cyst 06/27/2011 Other convulsions 05/23/2007 Overview: Bitemporal lobe epilepsy. [facility], 05/09/09, pt prescribed Zonisamide. Essential hypertension 05/23/2007 Headache(784.0) 05/23/2007 Overview: migraine Allergic rhinitis, cause unspecified 05/23/2007 Other and unspecified hyperlipidemia 05/23/2007 Degeneration of lumbar or lumbosacral intervertebral disc 05/23/2007 Tobacco use disorder 05/23/2007 Sciatica 02/12/2007 Lumbago 02/12/2007 Overview: Dr Ja Cheema [facility] seen on 09/15/08 Started on fentalnyl 2005 documented as of this encounter (statuses as of 02/12/2019) Immunizations Name Administration Dates Next Due Influenza (IM) Preservative Free 04/20/2016, 03/18/2014, 03/18/2013, 05/06/2012, 05/12/2010, 03/22/2008 Influenza Vaccine Whole 02/07/2017 PNEUMOCOCCAL POLYSACCHARIDE VACCINE 02/07/2017, 03/23/2016 TDAP Vaccine 10/21/2012 documented as of this encounter Social History Tobacco Use Types Packs/Day Years Used Date Current Every Day Smoker Cigarettes 0.5 Smokeless Tobacco: Former User Quit: 02/26/2016 Comments: 1/2-1 ppd Alcohol Use Drinks/Week oz/Week Comments No Sex Assigned at Date Recorded Not on file Job Start Date Occupation Industry Not on file Not on file Not on file Travel History Travel Start Travel End No recent travel history available. documented as of this encounter Last Filed Vital Signs Vital Sign Reading Time Taken Comments Blood Pressure 128/67 02/12/2019 2:36 PM EDT Pulse 74 02/12/2019 2:36 PM EDT Temperature - - Respiratory Rate - - Oxygen Saturation 96% 02/12/2019 2:36 PM EDT Inhaled Oxygen Concentration - - Weight 89.4 kg (197 lb) 02/12/2019 2:36 PM EDT Height 160 cm (5' 3") 02/12/2019 2:36 PM EDT Body Mass Index 34.9 02/12/2019 2:36 PM EDT documented in this encounter Patient Instructions Patient InstructionsElo Hart FNP - 02/12/2019 2:20 PM EDTPrednisone as directed - eat first Ice to left buttock twice a day for up to 5 minutes Can try tonic water for leg cramping Avoid sitting or lying flat for long periods - recliner works best Call if pain persistsElectronically signed by Elo Hart FNP at 2018 2:46 PM EDT documented in this encounter Progress Notes Elo Hart FNP - 02/12/2019 2:20 PM EDT PATIENT: Geneva Fraser : 1965 DATE OF SERVICE: 02/12/2019 CHIEF COMPLAINT: Chief Complaint Patient presents with Low Back Pain left side, pain shooting down left leg, pain medication no longer helping Subjective HISTORY OF PRESENT ILLNESS: Geneva Fraser is a 53-y.o. female. HPI Pain left lower back radiating down left leg. Does have WC case - told to come here as not clear if this is related. Using pain meds, heat, not helping. Pain started a week ago - started gradually and has been getting worse. Past Medical History: Diagnosis Date Allergic rhinitis, cause unspecified 05/23/2007 BMI 27.0-27.9,adult 09/05/2011 Degeneration of lumbar or lumbosacral intervertebral disc 05/23/2007 Headache(784.0) 05/23/2007 Lumbago 02/12/2007 Other and unspecified hyperlipidemia 05/23/2007 Other convulsions 05/23/2007 Sciatica 02/12/2007 Tobacco use disorder 05/23/2007 Unspecified essential hypertension 05/23/2007 Family History Problem Relation Age of Onset Hypertension Mother Arthritis Mother High Cholesterol Mother Respiratory Mother GI Mother ulcerative colitis Hypertension Father Heart Father High Cholesterol Father Cancer Father leukemia, prostate Breast Cancer Maternal Grandmother Cancer Maternal Grandmother ovarian Ovarian Cancer Paternal Grandmother Current Outpatient Medications Medication Sig albuterol (PROVENTIL, VENTOLIN) (2.5 MG/3ML) 0.083% Inhalation Nebu Soln 3 mL by Inhalation-SVN route TWICE DAILY. albuterol HFA (VENTOLIN) 108 (90 Base) MCG/ACT Inhalation Aero Soln Take 2 Puffs by inhalation EVERY FOUR HOURS NEEDED (short of breath). aspirin (ECOTRIN) 81 MG Oral Tab EC Take 81 mg by mouth DAILY. atenolol (TENORMIN) 25 MG Oral Tab take 1 tablet by mouth once daily atorvastatin (LIPITOR) 80 MG Oral Tab take 1 tablet by mouth once daily budesonide-formoterol fumarate (SYMBICORT) 160-4.5 MCG/ACT Inhalation Aerosol Take 2 INHL by inhalation TWICE DAILY. isosorbide MONOnitrate (IMDUR) 30 MG Oral TABLET SR 24 HR Take 1 Tab by mouth DAILY. lisinopril (PRINIVIL, ZESTRIL) 10 MG Oral Tab Take 1 Tab by mouth DAILY. nitroglycerin (NITROSTAT) 0.4 MG Sublingual SL Tab Place 1 Tab under tongue EVERY FIVE MINUTES NEEDED for chest pain. Omeprazole delayed rel cap 20 MG Oral CAPSULE DELAYED RELEASE take 1 capsule by mouth once daily OXYcodone-acetaminophen (PERCOCET) 5-325 MG Oral Tab Take 1-2 Tabs by mouth TWICE DAILY. Pt taking one tab in AM and 2 tabs in PM predniSONE (DELTASONE) 20 MG Oral Tab Take 1 Tab by mouth TWICE DAILY for 5 days. sertraline (ZOLOFT) 100 MG Oral Tab Take 1 Tab by mouth DAILY. sertraline (ZOLOFT) 50 MG Oral Tab Take 1 Tab by mouth DAILY. Take with Zoloft 100 mg, total 150 mg daily zonisamide (ZONEGRAN) 100 MG Oral Cap Take 100 mg by mouth TWICE DAILY. No current facility-administered medications for this visit. Allergies Allergen Reactions Latex Dermatologic Reaction Penicillins Other and Unknown Reaction Yeast infection Phenobarbital Unknown Reaction Social History Socioeconomic History Marital status: Spouse name: Not on file Number of children: Not on file Years of education: Not on file Highest education level: Not on file Occupational History Not on file Social Needs Financial resource strain: Not on file Food insecurity: Worry: Not on file Inability: Not on file Transportation needs: Medical: Not on file Non-medical: Not on file Tobacco Use Smoking status: Current Every Day Smoker Packs/day: 0.50 Types: Cigarettes Smokeless tobacco: Former User Quit date: 02/26/2016 Tobacco comment: ppd Substance and Sexual Activity Alcohol use: No Drug use: No Sexual activity: Yes Partners: Male Lifestyle Physical activity: Days per week: Not on file Minutes per session: Not on file Stress: Not on file Relationships Social connections: Talks on phone: Not on file Gets together: Not on file Attends adventist service: Not on file Active member of club or organization: Not on file Attends meetings of clubs or organizations: Not on file Relationship status: Not on file Intimate partner violence: Fear of current or ex partner: Not on file Emotionally abused: Not on file Physically abused: Not on file Forced sexual activity: Not on file Other Topics Concern Back Care Not Asked Bike Helmet Not Asked Blood Transfusions Not Asked Caffeine Concern Yes Comment: 1 c tea /day and occasional coffee and pepsi Exercise Not Asked Hobby Hazards Not Asked International Travel Not Asked Service Not Asked Occupational Exposure Not Asked Seat Belt Not Asked Self-Exams Not Asked Sleep Concern Not Asked Special Diet Not Asked Stress Concern Not Asked Weight Concern Not Asked Social History Narrative Not on file REVIEW OF SYSTEMS: Review of Systems Constitutional: Positive for malaise/fatigue. Negative for chills and fever. Respiratory: Negative for shortness of breath. Cardiovascular: Negative for chest pain and leg swelling. Musculoskeletal: Positive for back pain and myalgias. Negative for falls. Neurological: Positive for tingling. Negative for dizziness and headaches. Objective PHYSICAL EXAM: VITALS: BP 128/67 (BP Location: Left arm, Patient Position: Sitting) | Pulse 74 | Ht 5' 3" (1.6 m) | Wt 197 lb (89.4 kg) | LMP 08/27/2010 | SpO2 96% | BMI 34.90 kg/m Body mass index is 34.9kg/m. Physical Exam Constitutional: She is oriented to person, place, and time. Vital signs are normal. She appears well-developed and well-nourished. HENT: Head: Normocephalic and atraumatic. Eyes: Pupils are equal, round, and reactive to light. Neck: Normal range of motion. No JVD present. Cardiovascular: No LE edema Musculoskeletal: Lumbar back: She exhibits decreased range of motion and tenderness. Back: Neurological: She is alert and oriented to person, place, and time. No cranial nerve deficit. Coordination normal. Skin: Skin is warm and dry. No ecchymosis and no rash noted. No erythema. Vitals reviewed. ASSESSMENT / IMPRESSION: ICD-9-CM ICD-10-CM 1. Sciatica of left side 724.3 M54.32 predniSONE (DELTASONE) 20 MG Oral Tab 2. Degeneration of lumbar or lumbosacral intervertebral disc 722.52 M51.37 Plan Prednisone as directed - eat first Ice to left buttock twice a day for up to 5 minutes Can try tonic water for leg cramping Avoid sitting or lying flat for long periods - recliner works best Call if pain persists Author: FER Alfaro 02/12/2019 14:53 documented in this encounter Plan of Treatment Date Type Specialty Care Team Description 08/19/2019 Office Visit Cardiology Sylvia Duffy CRNP [address] [place] [address] [phone] Health Maintenance Due Date Last Done Comments ZOSTER IMMUNIZATION SERIES 2016 (1 of 2) COLONOSCOPY SCREENING 01/05/2019 01/06/2016, 01/06/2016 INFLUENZA VACCINE (#1) 2019 02/07/2017, 04/20/2016, 03/18/2014, Additional history exists DEPRESSION SCREENING 08/07/2019 08/06/2018, 08/06/2018 DIABETES SCREENING 08/19/2019 08/18/2018, 03/07/2018, 11/09/2013 LIPID DISORDER SCREENING 08/19/2019 08/18/2018, 03/17/2018, 01/30/2006, Additional history exists PAP SMEAR 08/18/2021 08/18/2018, 11/10/2013, 06/12/2010, Additional history exists PNEUMOCOCCAL 0-64 YRS Completed 02/07/2017, 03/23/2016 HPV IMMUNIZATION SERIES Aged Out No longer eligible based on patient's age to complete this topic MENINGOCOCCAL VACCINE IMM Aged Out No longer eligible based on patient's age to complete this topic documented as of this encounter Goals Goal Patient Goal Associated Recent Patient-Stated? Author Type Problems Progress Blood Pressure Blood Pressure 128/67 No Shannon, < 140/90 (02/12/2019 MD Maribel 2:36 PM EDT) Note: This is an individualized treatment (blood pressure) goal for Geneva Fraser: Displayed above (on the left) is your goal for blood pressure control. Your most recent blood pressure is also shown above, on the right. You should try to achieve blood pressures that are lower than your goal listed above (on the left). Smoking Cessation COPD No Maribel Ortega MD Note: This is an individualized treatment (COPD) goal for Geneva Fraser: Quit smoking immediately! Your provider has information and resources that may help you to quit. Depression screen (PHQ-9) Depression 14 (08/06/2018 3:02 PM Maribel Fontenot MD total score < 5 EDT) Note: This is an individualized treatment (depression) goal for Geneva Fraser: Displayed above is your goal for a depression screening (PHQ-9) score that would indicate good control of your depression. Weight loss vs. 18 mo max Lifestyle 2 (02/12/2019 2:36 PM EDT) Maribel Fontenot MD (lbs) >= 10 Note: This is an individualized lifestyle goal for Geneva Fraser: Your body mass index (BMI) is more than 30. You should lose weight. A reasonable starting goal is to lose 10 pounds. Displayed above is how many pounds you have lost thus far towards your 10 pound weight loss goal. Keep a regular sleep schedule Lifestyle Maribel Fontenot MD Note: This is an individualized lifestyle goal for Geneva Fraser: Please maintain a regular sleep schedule. This may help with some symptoms of depression. Keep immunizations current Lifestyle Maribel Fontenot MD Note: This is an individualized lifestyle goal for Geneva Fraser: Please be sure to keep up-to-date on recommended immunizations. For example, this would include a yearly influenza vaccine. Immunization status can be seen by looking at the Health Maintenance sections of your [facility], Plan of Care, and any After Visit Summaries. Take all prescribed medications as directed Self-management Maribel Fontenot MD Note: This is an individualized self-management goal for Geneva Fraser: Please take all prescribed medications as directed. 1. Do not skip doses. If you cannot afford your medications, talk with your doctor. 2. Use a pill reminder system such as a pill box if needed. Your pharmacist can help you with this. 3. Contact your Pharmacy 5 days before your medication runs out. If you cannot take your medications for any reasons, talk with your doctor. 4. Please bring all of your medication bottles and inhalers (or a list of all your medications/inhalers) with you to every visit. Potential barriers to meeting all of your care plan goals will continue to be addressed on an ongoing basis. documented as of this encounter Results Not on filedocumented in this encounter Visit Diagnoses Diagnosis Sciatica of left side - Primary Sciatica Degeneration of lumbar or lumbosacral intervertebral disc documented in this encounter Insurance Payer Benefit Plan / Subscriber ID Effective Dates Phone Address Type Group AETNA COMMERCIAL AETNA [facility] xxxxxxxxxx 2016-Present Aetna Guarantor Name Account Type Relation to Date of Phone Billing Patient Address Geneva Fraser Personal/Family 1965 [address] ([address]) [address] [place], [place] ([place]) [address] documented as of this encounter
--- NOTE | 2019-03-25 18:10 | ED ---
Respiratory - HPI Summary HPI Summary: 53 yo female presents with URI symptoms. She tells me that for the past 3 days she has had sinus pain/pressure/congestion, intermittently productive cough, and sore throat. She mentions that she has a hx of COPD and has been out of her albuterol and symbicort for a few weeks and needs a refill. She has felt feverish at home, but has not taken her temperature. Denies SOB, chest pain, abdominal pain, n/v. - History of Current Complaint Chief Complaint: EDUpperRespComplaint Stated Complaint: NASAL SWELLING CONGESTION PER PT Time Seen by Provider: 03/25/19 18:10 Hx Obtained From: Patient Initial Severity: Moderate Current Severity: Moderate Pain Intensity: 9 - Allergy/Home Medications Allergies/Adverse Reactions: Allergies Allergy/AdvReac Type Severity Reaction Status Date / Time latex Allergy Itching Verified 03/25/19 15:48 Penicillins Allergy Unknown Verified 03/25/19 15:48 Reaction Details PMH/Surg Hx/FS Hx/Imm Hx Endocrine/Hematology History: Denies: Hx Diabetes Cardiovascular History: Reports: Hx Coronary Artery Disease, Hx Hypercholesterolemia, Hx Hypertension - ON MEDS, Other Cardiovascular Problems/ Disorders - 2 CARDIAC STENTS Jan 2016 Denies: Hx Congestive Heart Failure Respiratory History: Reports: Hx Chronic Bronchitis, Hx Chronic Obstructive Pulmonary Disease (COPD), Hx Pneumonia GI History: Reports: Hx Gastroesophageal Reflux Disease - NO MEDS NEEDED NOW, Hx Irritable Bowel Denies: Other GI Disorders History: Reports: Other Problems/Disorders - STRESS INCONTINENCE Denies: Hx Dialysis, Hx Renal Disease Musculoskeletal History: Reports: Hx Arthritis - BACK, LEFT SHOULDER, Hx Back Problems Sensory History: Denies: Hx Contacts or Glasses, Hx Hearing Aid Opthamlomology History: Denies: Hx Contacts or Glasses Neurological History: Reports: Hx Headaches, Hx Migraine - MIGRAINES R/T EPILEPSY, Hx Seizures - LAST ONE 03/23, Other Neuro Impairments/Disorders - 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 BILAT [facility] 2004 [facility] [place] LAP LESLYE 2001 [facility] [place]. c section x2, 1988- . left heel tendon repair [facility] [place]. tubal ligation 1989 [facility] [place]. Spinal stimulator. trial dorsal column stimulator October 2014 [facility] [place]. perm. dorsal column stimulator placed 03/31/2015 Hx Anesthesia Reactions: No Infectious Disease History: No Infectious Disease History: Denies: Traveled Outside the [place] in Last 30 Days - Family History Known Family History: Positive: Cardiac Disease - CABG in father, Respiratory Disease - COPD - Social History Lives: With Family Alcohol Use: None Hx Substance Use: No Substance Use Type: Reports: None Substance Use Comment - Amount & Last Used: fentanyl patch Hx Tobacco Use: Yes Smoking Status (MU): Current Every Day Smoker Type: Cigarettes Amount Used/How Often: 1/2 PPD or less Length of Time of Smoking/Using Tobacco: 2PPD x 30 YRS Have You Smoked in the Last Year: Yes Review of Systems Constitutional: Negative Eyes: Negative Positive: Sore Throat, Nasal Discharge Cardiovascular: Negative Positive: Cough Gastrointestinal: Negative Genitourinary: Negative Neurological: Negative Psychological: Normal All Other Systems Reviewed And Are Negative: No Physical Exam - Summary Physical Exam Summary: GENERAL: NAD. WDWN. No pain distress. SKIN: No rashes, sores, lesions, or open wounds. HEENT: Head: AT/NC Eyes: EOM intact. Conjunctiva clear without inflammation or discharge. Ears: Hearing grossly normal. TMs intact, no bulging, erythema, or edema. Nose: Nasal mucosa mildly swollen and erythematous with yellow/ clear discharge. TTP maxillary and frontal sinus. Positive post nasal drip Throat: Posterior oropharynx without exudates, erythema, or tonsillar enlargement. Uvula midline. NECK: Supple. Nontender. No lymphadenopathy. CHEST: Mild wheezing throughout. No r/r. No accessory muscle use. Breathing comfortably and in no distress. CV: RRR. Pulses intact. NEURO: Alert. PSYCH: Age appropriate behavior. Triage Information Reviewed: Yes Vital Signs On Initial Exam: Initial Vitals Temp Pulse Resp BP Pulse Ox 97.0 F 83 16 180/100 97 03/25/19 15:45 03/25/19 15:45 03/25/19 15:45 03/25/19 15:45 03/25/19 15:45 Vital Signs Reviewed: Yes Procedures - Sedation Patient Received Moderate/Deep Sedation with Procedure: No Diagnostics - Vital Signs Vital Signs Temp Pulse Resp BP Pulse Ox 03/25/19 15:45 97.0 F 83 16 180/100 97 - Laboratory Lab Statement: Any lab studies that have been ordered have been reviewed, and results considered in the medical decision making process. Disposition - Course Course Of Treatment: Suspect sinusitis and COPD exacerbation. Will refill her usual inhalers and rx for doxycycline. Advised to be rechecked by her PCP in 3 days - Diagnoses Provider Diagnoses: COPD exacerbation, Sinusitis Discharge ED - Sign-Out/Discharge Documenting (check all that apply): Patient Departure - Discharge Plan Condition: Stable Disposition: HOME Prescriptions: Albuterol HFA INHALER* [Ventolin HFA Inhaler*] 2 puff INH BID PRN #1 mdi PRN Reason: Wheezing Budesonide/Formote 160/4.5(NF) [Symbicort 160/4.5 (NF)] 2 puff INH BID #1 mdi DOXYcycline CAP(*) [DOXYcycline 100MG CAP(*)] 100 mg PO BID #14 cap Patient Education Materials: Sinusitis (ED), COPD (Chronic Obstructive Pulmonary Disease) (ED) Referrals: Maribel Ortega MD [Primary Care Provider] - 3 Days Additional Instructions: If you develop a fever, shortness of breath, chest pain, new or worsening symptoms - please call your PCP or go to the ED immediately. Your blood pressure was high at todays visit. Please see your primary provider within 4 weeks for recheck and re-evaluation. - Billing Disposition and Condition Condition: STABLE Disposition: Home - Attestation Statements Provider Attestation: I was available for consultation for this patient. I did not evaluate the patient or participate in any medical decision making or disposition decisions unless I am specifically named in the chart as having consulted on the patient. If I have consulted on the patient, please see my own ED note on the patient encounter. Doron Tracy MD
[2019-03-25 18:28] VITALS: BP 136/89
== END 2019-03-25 18:23 | disposition home or self-care (01) ==
LOC: ED 15:31
DX: J44.1 Chronic obstructive pulmonary disease with (acute) exacerbation (principal); J32.9 Chronic sinusitis, unspecified; I25.10 Atherosclerotic heart disease of native coronary artery without angina pectoris; E78.00 Pure hypercholesterolemia, unspecified; I10 Essential (primary) hypertension; K21.9 Gastro-esophageal reflux disease without esophagitis; F41.9 Anxiety disorder, unspecified; F32.9 Major depressive disorder, single episode, unspecified; F17.210 Nicotine dependence, cigarettes, uncomplicated; Z95.5 Presence of coronary angioplasty implant and graft; Z90.49 Acquired absence of other specified parts of digestive tract; Z79.899 Other long term (current) drug therapy; Z88.0 Allergy status to penicillin; Z91.040 Latex allergy status
CPT/HCPCS: 99281

== ENCOUNTER 2019-07-02 18:17 | Emergency (ER) | payer OTHER ==
[2019-07-02 18:55] VITALS: BP 130/92
[2019-07-02 19:51] LABS: Influenza A Molecular Negative (Negative); Influenza B Molecular Negative (Negative)
--- NOTE | 2019-07-02 20:14 | UC ---
Respiratory Complaint HPI - HPI Summary HPI Summary: Patient is a 53yo female presenting with nasal congestion, post nasal drip, and cough x2-3 days. Notes sore throat from coughing. States the mucous in her throat feels like a "big lump." Denies sob and wheezing. Denies n/v. Notes chills. Denies known fevers. Taking tylenol for pain relief. - History of Current Complaint Chief Complaint: UCGeneralIllness Stated Complaint: RESP COMPLAINT Hx Obtained From: Patient Hx Last Menstrual Period: post Pain Intensity: 6 Pain Scale Used: 0-10 Numeric - Allergies/Home Medications Allergies/Adverse Reactions: Allergies Allergy/AdvReac Type Severity Reaction Status Date / Time latex Allergy Itching Verified 07/02/19 19:00 Penicillins Allergy Unknown Verified 07/02/19 19:00 Reaction Details PMH/Surg Hx/FS Hx/Imm Hx - Surgical History Surgical History: Yes Surgery Procedure, Year, and Place: 01/2016 - heart attack w/ 2 stents. [facility] [place] [facility] [place] [facility] [place]. c section x2, 1988- . left heel tendon repair [facility] [place]. tubal ligation 1989 [facility] [place]. Spinal stimulator. trial dorsal column stimulator October 2014 [facility] [place]. perm. dorsal column stimulator placed 03/31/2015 - Family History Known Family History: Positive: Cardiac Disease - CABG in father, Respiratory Disease - COPD - Social History Alcohol Use: None Substance Use Type: None Substance Use Comment - Amount & Last Used: fentanyl patch Smoking Status (MU): Light Every Day Tobacco Smoker Type: Cigarettes Amount Used/How Often: 1/2 PPD Length of Time of Smoking/Using Tobacco: 2PPD x 30 YRS Have You Smoked in the Last Year: Yes When Did the Patient Quit Smoking/Using Tobacco: 02/05/16 Household Exposure Type: Cigarettes - Immunization History Most Recent Influenza Vaccination: Feb 2015 Most Recent Tetanus Shot: within ten years Most Recent Pneumonia Vaccination: never Review of Systems All Other Systems Reviewed And Are Negative: Yes Constitutional: Positive: Chills ENT: Positive: Sore Throat, Nasal Discharge - PND, Sinus Congestion Respiratory: Positive: Cough. Negative: Shortness Of Breath Cardiovascular: Positive: Negative Gastrointestinal: Positive: Negative Musculoskeletal: Negative: Myalgia Neurological: Positive: Negative Physical Exam - Summary Physical Exam Summary: Vital Signs Reviewed: Yes A+Ox3, no distress, well-appearing Eyes: Conjunctiva Clear ENT: Hearing grossly normal, TM x 2 clear, +PND, moist, uvula midline, no exudate, no erythema Neck: Positive: Supple Respiratory: Positive: No respiratory distress, No accessory muscle use + CTA throughout no w/r Cardiovascular: RRR nl s1, s2 no m/r Musculoskeletal Exam: SOLIS x 4 without difficulty Neurological: Positive: Alert Psychological: Positive: age appropriate behavior Skin: Positive: no rash, no ecchymosis Vital Signs: Initial Vital Signs Temp 96.7 F 07/02/19 18:48 Pulse 86 07/02/19 18:48 Resp 16 07/02/19 18:48 BP 130/92 07/02/19 18:48 Pulse Ox 99 07/02/19 18:48 Lab Results 07/02/19 Range/Units 19:40 Influenza A (Rapid) Negative (Negative) Influenza B (Rapid) Negative (Negative) Respiratory Course/Dx - Course Course Of Treatment: Negative rapid flu. Discussed viral illness with patient and educated on symptomatic treatment. Instructed to refrain from smoking as well. I provided patient with prescription for flonase and mucinex. Instructed to follow up with pcp if symptoms persist or worsen. Patient voiced understanding and agreed with treatment plan. - Differential Dx/Diagnosis Provider Diagnosis: URI (upper respiratory infection), Post-nasal drip, Acute bronchitis Discharge ED - Sign-Out/Discharge Documenting (check all that apply): Patient Departure All imaging exams completed and their final reports reviewed: No Studies - Discharge Plan Condition: Stable Disposition: HOME Prescriptions: Fluticasone NASAL SPRAY 50MCG* [Flonase NASAL SPRAY 50MCG*] 2 spray BOTH NARES DAILY PRN #1 btl PRN Reason: Congestion guaiFENesin [Mucinex] 600 mg PO BID PRN #14 tab.er.12h PRN Reason: Congestion Patient Education Materials: Upper Respiratory Infection (ED), Acute Bronchitis (ED), Postnasal Drip (DC) Referrals: Maribel Ortega MD [Primary Care Provider] - If Needed Additional Instructions: Your symptoms are likely caused by a virus and should resolve without treatment. Take the mucinex and use Flonase for congestion relief. Refrain from smoking while symptoms are present and increase your fluid intake. Follow up with your primary care provider or the [facility] clinic listed below if symptoms worsen or do not resolve within 7 days. - Billing Disposition and Condition Condition: STABLE Disposition: Home - Attestation Statements Provider Attestation: This patient was not seen by me. I was available for consult. Chart reviewed. BRIAN
== END 2019-07-02 20:25 | disposition home or self-care (01) ==
LOC: UCEAST 18:17
DX: J20.9 Acute bronchitis, unspecified (principal); J06.9 Acute upper respiratory infection, unspecified; R09.82 Postnasal drip; F17.210 Nicotine dependence, cigarettes, uncomplicated; Z88.0 Allergy status to penicillin; Z91.040 Latex allergy status
CPT/HCPCS: 99211; G0463

== ENCOUNTER 2022-03-21 16:27 | Inpatient (IN) ==
[2022-03-21] MEDS ORDERED: Naloxone 0.4 mg VIAL 0.4 mg/ml 1 ml VIAL IV PRN (17:18)
[2022-03-21] MEDS ORDERED: Ondansetron 4 mg VIAL 2 MG/ML 2 ml VIAL IV PRN (17:18)
[2022-03-21] MEDS ORDERED: fentaNYL 100 mcg/2 ml 50 MCG/ML VIAL IV PRN (17:18)
[2022-03-21] MEDS ORDERED: Lidocaine 1% VIAL 10 MG/ML VIAL 30 ML ONE (17:31)
[2022-03-21] MEDS ORDERED: Vancomycin 1,000 MG VIAL ONE (17:31)
[2022-03-21] MEDS ORDERED: Gentamicin ADULT 40 MG/ML VIAL (2 ML VIAL = 80 MG) ONE ×2 (17:31→18:51)
[2022-03-21] MEDS ORDERED: Bupivacaine 0.25% SDV 30 ML ONE (17:32)
[2022-03-21] MEDS ORDERED: Albuterol HFA INHALER 8 gm MDI INH PRN (17:32)
[2022-03-21] MEDS ORDERED: ceFAZolin VIAL VIAL ONE ×2 (17:32→18:51)
[2022-03-21] MEDS ORDERED: Albuterol/Ipratropium NEB.SOL (2.5/0.5 MG) 3 ML NEB.SOLN INH PRN (17:32)
[2022-03-21] MEDS ORDERED: Albuterol 2.5mg/3 ml (0.083%) NEB.SOLN INH PRN (17:32)
[2022-03-21 17:45] LABS: Rapid COVID-19 Molecular Undetected (Undetected)
[2022-03-21] MEDS ORDERED: Bupivacaine 0.5% SDV PF 30ML VIAL ONE (18:55)
[2022-03-21] MEDS ORDERED: Mometasone/Formoter 200/5 MDI INH PRN (19:26)
[2022-03-21] MEDS ORDERED: fentaNYL 100 mcg/2 ml 50 MCG/ML VIAL ONE (20:17)
[2022-03-21] MEDS ORDERED: Vancomycin 1,000 MG in NS 0.9% 250 ml 250 ML IVPB ONE (20:18)
[2022-03-21] MEDS ORDERED: oxyCODONE/Acetamin 5/325 mg TAB PO PRN (20:20)
[2022-03-21] MEDS ORDERED: Vancomycin 1,250 MG IV x ONCE IVPB ONE (20:30)
[2022-03-21] MEDS ORDERED: Vancomycin per Pharmacy 1 EA NOTE FOLLOW UP SCH (21:00)
[2022-03-21] MEDS ORDERED: cefTRIAXone 2 gm/50 mL D5W 2 GM/50 ML BAG IV SCH (21:30)
[2022-03-21 21:56] LABS: ALT 15 U/L (7-52); Albumin 3.5 g/dL (3.2-5.2); Albumin/Globulin Ratio 1.3 (1-3); Alkaline Phosphatase 79 U/L (35-149); Blood Urea Nitrogen 18 mg/dL (6-24); C Reactive Protein 15.64 mg/L (<8.01); CO2 Carbon Dioxide 21 mmol/L (22-32); Calcium 8.5 mg/dL (8.6-10.3); Globulin 2.6 g/dL (2-4); Glucose 80 mg/dL (70-100); Sodium 142 mmol/L (135-145); Total Protein 6.1 g/dL (6.4-8.9); eGFR CKD-EPI 79.7 (>60)
[2022-03-21 21:58] LABS: Chloride 114 mmol/L (101-111)
[2022-03-21 22:41] LABS: ABS Basophils 0.1 10^3/ul (0-0.2); ABS Lymphocytes 2.8 10^3/ul (1.0-4.8); ABS Monocytes 0.6 10^3/ul (0-0.8); ABS Neutrophils 3.6 10^3/ul (1.5-7.7); Hematocrit 37 % (35-47); Hemoglobin 11.7 g/dL (12.0-16.0); Lymphocyte % 39.6 %; Mean Corpuscular HGB Conc 32 g/dL (31-36); Mean Corpuscular Hemoglobin 29 pg (27-31); Mean Corpuscular Volume 90 fL (80-97); Mean Platelet Volume 7.9 fL (7.4-10.4); Platelet Count 263 10^3/uL (150-450); Red Cell Distribution Width 14 % (10-15); White Blood Count 7.2 10^3/uL (3.5-10.8)
[2022-03-21 22:42] LABS: Anion Gap 7 mmol/L (2-11)
[2022-03-22] MEDS: oxyCODONE/Acetamin 5/325 mg TAB PO PRN ×5 (00:40→22:35)
[2022-03-22] MEDS: CMCS: Zonisamide 100 mg CAP (NF) PO SCH ×3 (00:40→19:59)
[2022-03-22] MEDS: CMCS: Meloxicam 7.5 mg TAB (NF) PO SCH ×3 (00:40→19:59)
[2022-03-22 06:48] LABS: ABS Basophils 0.1 10^3/ul (0-0.2); ABS Lymphocytes 2.4 10^3/ul (1.0-4.8); ABS Monocytes 0.6 10^3/ul (0-0.8); ABS Neutrophils 3.7 10^3/ul (1.5-7.7); Hematocrit 35 % (35-47); Hemoglobin 11.5 g/dL (12.0-16.0); Lymphocyte % 35.4 %; Mean Corpuscular HGB Conc 33 g/dL (31-36); Mean Corpuscular Hemoglobin 29 pg (27-31); Mean Corpuscular Volume 89 fL (80-97); Platelet Count 274 10^3/uL (150-450); Red Blood Count 3.95 10^6 /uL (3.70-4.87); Red Cell Distribution Width 15 % (10-15); White Blood Count 6.8 10^3/uL (3.5-10.8)
[2022-03-22 07:18] LABS: Calcium 8.5 mg/dL (8.6-10.3); eGFR CKD-EPI 56.9 (>60)
[2022-03-22 07:19] LABS: Magnesium 1.9 mg/dL (1.9-2.7)
[2022-03-22] MEDS ORDERED: NS 0.9% 1000 ml BAG 1,000 ML IV SCH (08:15)
[2022-03-22] MEDS: Aspirin EC 81 mg TAB.EC (enteric coated) PO SCH (09:40)
[2022-03-22] MEDS ORDERED: Vancomycin 1000 MG in NS 0.9% 250 ML IVPB SCH (11:00)
[2022-03-22] MEDS: ceFAZolin 2 GM in NS PREMIX 2 GM/100 ML BAG IVPB SCH ×2 (13:32→20:03)
[2022-03-22] MEDS: Heparin 5000 UNITS/ML 1 mL VIAL SUBCUT SCH ×2 (15:18→22:37)
[2022-03-23] MEDS: oxyCODONE/Acetamin 5/325 mg TAB PO PRN ×3 (04:06→21:29)
[2022-03-23] MEDS: ceFAZolin 2 GM in NS PREMIX 2 GM/100 ML BAG IVPB SCH ×3 (04:37→21:35)
[2022-03-23] MEDS: Heparin 5000 UNITS/ML 1 mL VIAL SUBCUT SCH ×3 (06:03→21:31)
[2022-03-23 07:06] LABS: Calcium 8.5 mg/dL (8.6-10.3); Potassium 3.7 mmol/L (3.5-5.0); eGFR CKD-EPI 57.5 (>60)
[2022-03-23] MEDS: Aspirin EC 81 mg TAB.EC (enteric coated) PO SCH (09:59)
[2022-03-23] MEDS: CMCS: Meloxicam 7.5 mg TAB (NF) PO SCH ×2 (10:00→21:34)
[2022-03-23] MEDS: CMCS: Zonisamide 100 mg CAP (NF) PO SCH ×2 (10:00→21:34)
[2022-03-23] MEDS ORDERED: Senna TAB 8.6 mg TAB PO PRN (10:13)
[2022-03-23] MEDS ORDERED: Polyethylene Glycol 3350 17 GM PACKET PO PRN (10:13)
[2022-03-23] MEDS ORDERED: Magnesium Hydroxide LIQ 30 ML UDC PO ONE (10:14)
[2022-03-23] MEDS ORDERED: Vancomycin Trough Check NOTE FOLLOW UP ONE (10:30)
[2022-03-23 18:17] LABS: Potassium 4.1 mmol/L (3.5-5.0); eGFR CKD-EPI 63.5 (>60)
[2022-03-23] MEDS: Magnesium Hydroxide LIQ 30 ML UDC PO SCH (21:30)
[2022-03-24] MEDS: ceFAZolin 2 GM in NS PREMIX 2 GM/100 ML BAG IVPB SCH ×3 (04:24→20:15)
[2022-03-24] MEDS: oxyCODONE/Acetamin 5/325 mg TAB PO PRN ×3 (04:35→21:06)
[2022-03-24] MEDS: Heparin 5000 UNITS/ML 1 mL VIAL SUBCUT SCH ×3 (06:14→21:08)
[2022-03-24 06:17] LABS: Hematocrit 36 % (35-47); Hemoglobin 11.9 g/dL (12.0-16.0); Mean Corpuscular HGB Conc 33 g/dL (31-36); Mean Corpuscular Hemoglobin 29 pg (27-31); Mean Corpuscular Volume 88 fL (80-97); Mean Platelet Volume 8.5 fL (7.4-10.4); Platelet Count 263 10^3/uL (150-450); Red Blood Count 4.07 10^6 /uL (3.70-4.87); Red Cell Distribution Width 14 % (10-15); White Blood Count 6.3 10^3/uL (3.5-10.8)
[2022-03-24 07:36] LABS: ABS Basophils 0.1 10^3/ul (0-0.2); ABS Lymphocytes 2.6 10^3/ul (1.0-4.8); ABS Monocytes 0.4 10^3/ul (0-0.8); ABS Neutrophils 3.2 10^3/ul (1.5-7.7); Lymphocyte % 41.8 %; Nucleated Red Blood Cells % 0.1
[2022-03-24] MEDS: Magnesium Hydroxide LIQ 30 ML UDC PO SCH ×2 (09:15→21:08)
[2022-03-24] MEDS: Aspirin EC 81 mg TAB.EC (enteric coated) PO SCH (09:16)
[2022-03-24] MEDS: CMCS: Zonisamide 100 mg CAP (NF) PO SCH ×2 (09:16→21:07)
[2022-03-24] MEDS: CMCS: Meloxicam 7.5 mg TAB (NF) PO SCH ×2 (09:16→21:07)
[2022-03-25] MEDS: ceFAZolin 2 GM in NS PREMIX 2 GM/100 ML BAG IVPB SCH ×3 (05:27→21:43)
[2022-03-25] MEDS: Heparin 5000 UNITS/ML 1 mL VIAL SUBCUT SCH ×3 (05:31→21:23)
[2022-03-25] MEDS: Aspirin EC 81 mg TAB.EC (enteric coated) PO SCH (08:52)
[2022-03-25] MEDS: CMCS: Meloxicam 7.5 mg TAB (NF) PO SCH ×2 (08:52→21:23)
[2022-03-25] MEDS: CMCS: Zonisamide 100 mg CAP (NF) PO SCH ×2 (08:53→21:23)
[2022-03-25] MEDS: oxyCODONE/Acetamin 5/325 mg TAB PO PRN ×2 (08:53→21:24)
[2022-03-25] MEDS: Magnesium Hydroxide LIQ 30 ML UDC PO SCH ×2 (08:53→21:23)
[2022-03-25 09:13] LABS: Calcium 8.9 mg/dL (8.6-10.3); Potassium 4.1 mmol/L (3.5-5.0)
[2022-03-26] MEDS: ceFAZolin 2 GM in NS PREMIX 2 GM/100 ML BAG IVPB SCH ×2 (05:17→13:11)
[2022-03-26] MEDS: Heparin 5000 UNITS/ML 1 mL VIAL SUBCUT SCH (05:19)
[2022-03-26] MEDS: oxyCODONE/Acetamin 5/325 mg TAB PO PRN ×4 (05:36→18:26)
[2022-03-26] MEDS: Aspirin EC 81 mg TAB.EC (enteric coated) PO SCH (08:09)
[2022-03-26] MEDS: CMCS: Meloxicam 7.5 mg TAB (NF) PO SCH (08:09)
[2022-03-26] MEDS: CMCS: Zonisamide 100 mg CAP (NF) PO SCH (08:09)
[2022-03-26] MEDS: Magnesium Hydroxide LIQ 30 ML UDC PO SCH (08:10)
[2022-03-26 15:33] VITALS: BP 147/81
== END 2022-03-26 18:30 | disposition home or self-care (01) | DRG 711 ==
LOC: ED 16:27 → SUATTDRO 18:12 → INTOOBSV 18:12 → SSU 19:59 → SUATTDRO 03-22 09:00
PROVIDERS: ADMIT Internal Medicine; ATTEND Hospitalist